=== PATIENT | male | born 1960 | race Hispanic/Latino ===

== ENCOUNTER 2018-03-19 08:52 | Emergency (ER) | payer OTHER ==
[2018-03-19] MEDS ORDERED: MECLIZINE HCL 12.5 MG TAB ONE (09:46)
[2018-03-19 10:17] LABS: Potassium 4.4 mEq/L (3.6-5.0)
[2018-03-19 10:18] LABS: Magnesium 2.1 mg/dL (1.8-2.5)
[2018-03-19 10:25] LABS: Absolute Lymphocytes (CBC) 2.1 K/uL (0.7-4.9); Absolute Monocytes 0.6 K/uL (0.1-1.3); Basophils % 0.8 % (0-1.3); Eosinophils % 4.7 % (0-4.4); Hematocrit 42.5 % (39.6-49.0); Lymphocytes % 35.1 % (15.3-44.8); MCH 35.3 pg (27.0-35.0); MPV 9.3 fL (7.6-11.3); Monocytes % 10.6 % (3.3-12.3); RBC Red Blood Cell Count 4.25 M/uL (4.33-5.43)
[2018-03-19 10:44] LABS: Protime INR 0.89
--- NOTE | 2018-03-19 10:44 | RAD REPORT ---
EXAM DESCRIPTION: CT - Head Brain Wo Cont - 03/19/2018 10:26 am CLINICAL HISTORY: Weakness, dizziness, near syncope, headache COMPARISON: None. TECHNIQUE: Axial 5 mm thick images of the head were obtained without IV contrast. All CT scans are performed using dose optimization technique as appropriate and may include automated exposure control or mA/KV adjustment according to patient size. FINDINGS: No intracranial hemorrhage, mass, edema or shift of mid-line structures. No acute infarcti on changes seen. No abnormal extra-axial fluid collections. Ventricles are normal. Mastoid air cells and visualized portions of the paranasal sinuses are clear. No acute bony findings. IMPRESSION: Negative non-contrast CT head examination.
--- NOTE | 2018-03-19 10:53 | RAD REPORT ---
EXAM DESCRIPTION: RAD - Chest Single View - 03/19/2018 10:21 am CLINICAL HISTORY: Weakness, dizziness, shortness of breath COMPARISON: None. TECHNIQUE: AP portable chest image was obtained 1013 hours . FINDINGS: Lung volumes are relatively low. No peripheral mass, consolidation or failure finding. Tra soniya is midline. Heart and vasculature are normal. No measurable pleural effusion and no pneumothorax . No gross bony abnormality seen. No acute aortic findings suspected. IMPRESSION: No acute cardiopulmonary process.
--- NOTE | 2018-03-19 11:03 | ER ---
Nurse's Notes [facility] Name: Domenic Beltre Sr Age: 58 yrs Sex: Male : 1960 Arrival Date: 03/19/2018 Time: 08:55 Bed 13 Private MD: None, None Diagnosis: Dizziness and giddiness Presentation: 03/19 09:20 Presenting complaint: Patient states: pt woke up this morning at 0630 felling dizzy and iw light headed, has had blood in urine on Thursday but has resolved, has hx of kidney stones. Transition of care: patient was not received from another setting of care. Onset of symptoms was March 19, 2018. Initial Sepsis Screen: Does the patient meet any 2 criteria? No. Patient's initial sepsis screen is negative. Does the patient have a suspected source of infection? No. Patient's initial sepsis screen is negative. Care prior to arrival: None. 09:20 Method Of Arrival: Ambulatory iw 09:20 Acuity: CORNELIUS 3 iw Triage Assessment: 09:28 General: Appears in no apparent distress. uncomfortable, Behavior is calm, cooperative, hj appropriate for age. Pain: Denies pain. Historical: - Allergies: 09:22 Aspirin; iw 09:22 PENICILLINS; iw - Home Meds: 09:22 POTASSIUM CITRATE er 15 meq BID (PT STATES HE ONLY TAKES DAILY) [Active]; iw - PMHx: 09:22 Kidney stones; iw - PSHx: 09:22 Lithotripsy; Appendectomy; iw - Immunization history:: Adult Immunizations unknown. - Social history:: Smoking status: Patient/guardian denies using tobacco, Patient/guardian denies using alcohol. Screenin:28 Abuse screen: Denies threats or abuse. Denies injuries from another. Nutritional hj screening: No deficits noted. Tuberculosis screening: No symptoms or risk factors identified. Fall Risk None identified. Assessment: 09:29 General: Appears in no apparent distress. uncomfortable, Behavior is calm, cooperative, hj appropriate for age. Pain: Denies pain. Neuro: Level of Consciousness is awake, alert, obeys commands, Oriented to person, place, time, situation, Appropriate for age Reports dizziness. Cardiovascular: Heart tones S1 S2 present Capillary refill < 3 seconds Patient's skin is warm and dry. Respiratory: Airway is patent Respiratory effort is even, unlabored, Respiratory pattern is regular, symmetrical. GI: No signs and/or symptoms were reported involving the gastrointestinal system. : No signs and/or symptoms were reported regarding the genitourinary system. EENT: No signs and/or symptoms were reported regarding the EENT system. Derm: No signs and/or symptoms reported regarding the dermatologic system. Musculoskeletal: No signs and/or symptoms reported regarding the musculoskeletal system. 10:00 Reassessment: pt standing at this time, reports really very dizzy, pt swaying back and sg forth, pt reports " it feels like im on a boat at sea." notified. 11:00 Reassessment: a FSBG was done, 228, notified of results, order to hold sg Insulin if pt glucose normally runs in that area, pt reports he is not sure what his normal blood sugar is, no history of diabetes reported per the pt. notified. Vital Signs: 09:22 BP 145 / 88; Pulse 60; Resp 16 S; Temp 98.2; Pulse Ox 97% on R/A; Weight 95.25 kg; iw Height 5 ft. 10 in. (177.80 cm); Pain 0/10; 10:00 BP 136 / 82 LA Supine (auto/lg); Pulse 54; sg 10:00 BP 144 / 82 Sitting; Pulse 53 MON; sg 10:00 BP 143 / 88 Standing; Pulse 60 MON; sg 09:22 Body Mass Index 30.13 (95.25 kg, 177.80 cm) iw ED Course: 08:55 Patient arrived in ED. mr 08:56 None, None is Private Physician. mr 09:16 Chapin Fajardo, SHADI is Primary Nurse. hj 09:22 Mravin Heller MD is Attending Physician. kdr 09:22 Triage completed. iw 09:22 Arm band placed on. iw 09:28 Patient has correct armband on for positive identification. Placed in gown. Bed in low hj position. Call light in reach. Side rails up X 1. Adult w/ patient. 09:31 Initial lab(s) drawn, by me. Inserted saline lock: 22 gauge in right antecubital area, hj using aseptic technique. Blood collected. 10:02 Primary Nurse role handed off by Chapin Fajardo, RN sg 10:02 Huff, Norbert, RN is Primary Nurse. sg 10:15 EKG done, by septic technician. reviewed by Marvin Heller MD. tc 10:20 X-ray completed. Portable x-ray completed in exam room. Patient tolerated procedure mh1 well. 10:21 XRAY Chest (1 view) In Process Unspecified. EDMS 10:26 CT Head Brain wo Cont In Process Unspecified. EDMS Administered Medications: 09:45 Drug: Meclizine 50 mg Route: PO; hj 10:00 Follow up: Response: No adverse reaction hj 12:13 Not Given (Patient Refused): Insulin Regular Human 4 units IVP once iw 12:13 Drug: Valium 5 mg Route: PO; iw Outcome: 11:03 Discharge ordered by . kdr 12:19 Patient left the ED. la1 Signatures: Dispatcher [employer] EDMS Norbert Huff, RN RN Marvin Pillai MD MD kdr Rivera, Maria Garrett Robinha 1 Shamika Harrington, RN RN Sherrie Johnson, lamp inspector EKG Ttc Dillan Garcia RN RN ny1 Chapin Fajardo, SHADI RN
--- NOTE | 2018-03-19 11:03 | EDPHYS ---
Physician Documentation [facility] Name: Domenic Beltre Sr Age: 58 yrs Sex: Male : 1960 Arrival Date: 03/19/2018 Time: 08:55 Bed 13 Private MD: None, None ED Physician Marvin Heller HPI: 03/19 16:23 This 58 yrs old Male presents to ER via Ambulatory with complaints of kdr Dizziness, Urinary Problem. 16:23 The patient presents with dizziness, feeling off balance, vertigo. Onset: The kdr symptoms/episode began/occurred suddenly, this morning, and became persistent today, After he awoke he became dizzy. Context: occurred at home, occurred while the patient was asleep, at rest, just prior to the episode the patient experienced no apparent symptoms. Modifying factors: The symptoms are alleviated by closing eyes, holding head still, the symptoms are aggravated by movement of head, standing up, changing position. Associated signs and symptoms: Pertinent positives: headache, nausea, Pertinent negatives: abdominal pain, agitation, ataxia, blurred vision, chest pain, combativeness, confusion, diaphoresis, focal weakness, head injury, near-syncope, numbness, palpitations, seizure, shortness of breath, syncope, tingling, vomiting. Severity of symptoms: At their worst the symptoms were mild in the emergency department the symptoms have improved mildly. Patient's baseline: Neuro: alert and fully oriented, Motor: no deficits, Ambulation: walks without assistance, Speech: normal. The patient has not experienced similar symptoms in the past. The patient has not recently seen a physician. Historical: - Allergies: 09:22 Aspirin; iw 09:22 PENICILLINS; iw - Home Meds: 09:22 POTASSIUM CITRATE er 15 meq BID (PT STATES HE ONLY TAKES DAILY) [Active]; iw - PMHx: 09:22 Kidney stones; iw - PSHx: 09:22 Lithotripsy; Appendectomy; iw - Immunization history:: Adult Immunizations unknown. - Social history:: Smoking status: Patient/guardian denies using tobacco, Patient/guardian denies using alcohol. ROS: 16:23 Constitutional: Negative for fever, chills, and weight loss, Eyes: Negative for injury, kdr pain, redness, and discharge, ENT: Negative for injury, pain, and discharge, Neck: Negative for injury, pain, and swelling, Cardiovascular: Negative for chest pain, palpitations, and edema, Respiratory: Negative for shortness of breath, cough, wheezing, and pleuritic chest pain, Abdomen/GI: Negative for abdominal pain, nausea, vomiting, diarrhea, and constipation, Back: Negative for injury and pain, : Negative for injury, bleeding, discharge, and swelling, MS/Extremity: Negative for injury and deformity, Skin: Negative for injury, rash, and discoloration, Psych: Negative for depression, anxiety, suicide ideation, homicidal ideation, and hallucinations, Allergy/Immunology: Negative for hives, rash, and allergies, Endocrine: Negative for neck swelling, polydipsia, polyuria, polyphagia, and marked weight changes, Hematologic/Lymphatic: Negative for swollen nodes, abnormal bleeding, and unusual bruising. 16:23 Neuro: Positive for dizziness, headache, Negative for altered mental status, gait disturbance, hearing loss, loss of consciousness, numbness, seizure activity, speech changes, syncope, near syncope, tingling, tinnitus, tremor, visual changes, weakness. Exam: 16:23 Constitutional: This is a well developed, well nourished patient who is awake, alert, kdr and in no acute distress. Head/Face: Normocephalic, atraumatic. Eyes: Pupils equal round and reactive to light, extra-ocular motions intact. Lids and lashes normal. Conjunctiva and sclera are non-icteric and not injected. Cornea within normal limits. Periorbital areas with no swelling, redness, or edema. Neck: Trachea midline, no thyromegaly or masses palpated, and no cervical lymphadenopathy. Supple, full range of motion without nuchal rigidity, or vertebral point tenderness. No Meningismus. Chest/axilla: Normal chest wall appearance and motion. Nontender with no deformity. No lesions are appreciated. Cardiovascular: Regular rate and rhythm with a normal S1 and S2. No gallops, murmurs, or rubs. Normal PMI, no JVD. No pulse deficits. Respiratory: Lungs have equal breath sounds bilaterally, clear to auscultation and percussion. No rales, rhonchi or wheezes noted. No increased work of breathing, no retractions or nasal flaring. Abdomen/GI: Soft, non-tender, with normal bowel sounds. No distension or tympany. No guarding or rebound. No evidence of tenderness throughout. Back: No spinal tenderness. No costovertebral tenderness. Full range of motion. Skin: Warm, dry with normal turgor. Normal color with no rashes, no lesions, and no evidence of cellulitis. MS/ Extremity: Pulses equal, no cyanosis. Neurovascular intact. Full, normal range of motion. Psych: Awake, alert, with orientation to person, place and time. Behavior, mood, and affect are within normal limits. 16:23 Neuro: Orientation: is normal, Mentation: is normal, Memory: is normal, Cranial nerves: no acute changes, Cerebellar function: no acute changes, Motor: is normal, Sensation: is normal, Gait: Slightly off balance when standing but able to ambulate. Dizziness resolves when he holds still with his eyes close. Vital Signs: 09:22 BP 145 / 88; Pulse 60; Resp 16 S; Temp 98.2; Pulse Ox 97% on R/A; Weight 95.25 kg; iw Height 5 ft. 10 in. (177.80 cm); Pain 0/10; 10:00 BP 136 / 82 LA Supine (auto/lg); Pulse 54; sg 10:00 BP 144 / 82 Sitting; Pulse 53 MON; sg 10:00 BP 143 / 88 Standing; Pulse 60 MON; sg 09:22 Body Mass Index 30.13 (95.25 kg, 177.80 cm) iw MDM: 11:03 Patient medically screened[address] [facility] 16:23 Data reviewed: vital signs, nurses notes, lab test result(s), radiologic studies. kdr Counseling: I had a detailed discussion with the patient and/or guardian regarding: the historical points, exam findings, and any diagnostic results supporting the discharge/admit diagnosis, lab results, radiology results, the need for outpatient follow up. ED course: The patient had resolution of his s/s with immobility and eye closure. He was able to lift his head off the bed and look up/down/side-side without significant worsening of his s/s. 03/19 09:44 Order name: Basic Metabolic Panel; Complete Time: 10:56 kdr 03/19 09:44 Order name: BNP; Complete Time: 10:56 kdr 03/19 09:44 Order name: CBC with Diff; Complete Time: 10:56 kdr 03/19 09:44 Order name: Magnesium; Complete Time: 10:56 kdr 03/19 09:44 Order name: PT-INR; Complete Time: 10:[address] [facility] 03/19 09:44 Order name: Ptt, Activated; Complete Time: 10:[address] [facility] 03/19 09:44 Order name: CT Head Brain wo Cont; Complete Time: 10:[address] [facility] 03/19 09:44 Order name: Orthostatic Blood Pressure; Complete Time: 10:[address] [facility] 03/19 09:44 Order name: XRAY Chest (1 view); Complete Time: 10:[address] [facility] 03/19 09:44 Order name: EKG; Complete Time: 09:[address] [facility] 03/19 09:44 Order name: Cardiac monitoring; Complete Time: 09:[address] [facility] 03/19 09:44 Order name: IV Saline Lock; Complete Time: :[address] [facility] 03/19 09:44 Order name: Labs collected and sent; Complete Time: :[address] [facility] 03/19 09:44 Order name: O2 Per Protocol; Complete Time: :[address] [facility] 03/19 09:44 Order name: O2 Sat Monitoring; Complete Time: :[address] [facility] Administered Medications: 09:45 Drug: Meclizine 50 mg Route: PO; hj 10:00 Follow up: Response: No adverse reaction hj 12:13 Not Given (Patient Refused): Insulin Regular Human 4 units IVP once iw 12:13 Drug: Valium 5 mg Route: PO; iw Disposition: 03/19/18 11:03 Discharged to Home. Impression: Dizziness and giddiness. - Condition is Stable. - Discharge Instructions: Vertigo, [id number], Dizziness, [id number]. - Prescriptions for Meclizine 25 mg Oral Tablet - take 1 tablet by ORAL route every 8 hours As needed One or two tabs three to four times per day; 30 tablet. Valium 2 mg Oral Tablet - take 1 tablet by ORAL route every 8 hours As needed; 20 tablet. - Medication Reconciliation Form, Thank You Letter, Antibiotic Education, Prescription Opioid Use form. - Follow up: Private Physician; When: 2 - 3 days; Reason: If symptoms return, Further diagnostic work-up, Recheck today's complaints, Continuance of care, Re-evaluation by your physician. - Problem is new. - Symptoms are resolved. Signatures: Dispatcher [employer] EDMarvin Moe MD MD Shamika Eckert, RN RN Dillan Sheth, RN RN la1 Chapin Fajardo, RN RN hj
[2018-03-19] MEDS ORDERED: DIAZEPAM 5 MG TABLET ONE (12:13)
--- NOTE | 2018-03-19 16:26 | EKG ---
Test Date: 2018-03-19 Test Time: 10:05:00 [employer]: RORY MEASUREMENT RESULTS: Intervals: Rate: 52 DE: 166 QRSD: 110 QT: 428 QTc: 398 [place]: P: 45 DE: 166 QRS: -21 T: 29 INTERPRETIVE STATEMENTS: Sinus bradycardia Otherwise normal ECG No previous ECG available for comparison Electronically Signed On 03-19-18 16:23:38 CDT by Sky Church
== END 2018-03-19 12:19 | disposition home or self-care (01) ==
LOC: ER 08:52
DX: R42 Dizziness and giddiness (principal); R51 Headache; Z88.0 Allergy status to penicillin; Z88.6 Allergy status to analgesic agent
CPT/HCPCS: 36415; 70450; 71045; 80048; 82962; 83735; 83880; 85025; 85610; 85730; 93005; 99284

== ENCOUNTER 2018-04-23 07:41 | Day surgery (SDC) | payer OTHER ==
[2018-04-23] MEDS ORDERED: NA CHLORIDE 0.9% 1,000 ML ONE (08:18)
[2018-04-23] MEDS ORDERED: PROPOFOL 200 MG/20 ML VIAL IV ONE ×2 (10:50)
--- NOTE | 2018-04-23 11:25 | ENDO RPT ---
[address], [address] COLONOSCOPY PROCEDURE REPORT EXAM DATE: 04/23/2018 PATIENT NAME: Domenic Beltre MR #: [id number] BIRTHDATE: 1960 ATTENDING: Sagar Tejada DR STATUS: outpatient COSMETIC CHEMIST: Shiloh Liang RN and Reymundo Olivares INDICATIONS: The patient is a 58 yr old Male here for a colonoscopy due to colon cancer screening PROCEDURE PERFORMED: Colonoscopy with biopsy - cold polypectomy MEDICATIONS: Per Anesthesia. ESTIMATED BLOOD LOSS: None CONSENT: The patient understands the risks and benefits of the procedure and understands that these risks include, but are not limited to: sedation, allergic reaction, infection, perforation and/or bleeding. Alternative means of evaluation and treatment include, among others: physical exam, x-rays, and/or surgical intervention. The patient elects to proceed with this endoscopic procedure. DESCRIPTION OF PROCEDURE: During intra-op preparation period all mechanical medical equipment was checked for proper function. Hand hygiene and appropriate measures for infection prevention was taken. Procedure, possible complications, alternatives including, but not limited to possibility of bleeding, perforation, tear, infection, sepsis, need for surgery, need for blood transfusion, were explained to the patient. After the risks, benefits and alternatives of the procedure were thoroughly explained, Informed consent was verified, confirmed and timeout was successfully executed by the treatment team. The patient was placed in the left lateral position. A digital rectal exam was performed and revealed internal hemorrhoids. After appropriate level of anesthesia, the scope was passed. The EC-[id number] ([id number]) endoscope was introduced through the anus and advanced to the cecum, which was identified by both the appendix and ileocecal valve. The quality of the prep was fair. The instrument was then slowly withdrawn as the colon was fully examined. Scope withdrawal time was 10 minutes. COLON FINDINGS: Small internal hemorrhoids were found. A small smooth semi-pedunculated polyp with a friable surface was found in the rectosigmoid colon. A biopsy was performed using cold forceps. Sample was obtained and sent to histology. Retroflexed views revealed no abnormalities. The scope was then completely withdrawn from the patient and the procedure terminated. ADVERSE EVENTS: There were no complications. IMPRESSIONS: 1. Small internal hemorrhoids 2. Small semi-pedunculated polyp was found in the rectosigmoid colon; biopsy was performed using cold forceps RECOMMENDATIONS: 1. await biopsy results 2. avoid NSAIDS for 2 weeks 3. fiber rich diet 4. follow-up: office 2 week(s) 5. hemorrhoidal hygiene RECALL: for Colonoscopy, pending biopsy results. Sagar Tejada DR eSigned: Sagar Tejada DR 04/23/2018 11:24 AM cc: CPT CODES: ICD9 CODES: PATIENT NAME: Domenic Beltre MR#: [id number]
== END 2018-04-23 12:02 | disposition home or self-care (01) ==
LOC: OR 07:41
PROVIDERS: ATTEND Surgery
PROC: 0DBN8ZX Excision of Sigmoid Colon, Via Natural or Artificial Opening Endoscopic, Diagnostic (ICD-10-PCS; principal; 2018-04-23 11:15)
DX: Z12.11 Encounter for screening for malignant neoplasm of colon (principal); K63.5 Polyp of colon; K64.8 Other hemorrhoids; E11.9 Type 2 diabetes mellitus without complications; I10 Essential (primary) hypertension; Z88.0 Allergy status to penicillin; Z88.6 Allergy status to analgesic agent; Z87.891 Personal history of nicotine dependence; Z80.3 Family history of malignant neoplasm of breast
CPT/HCPCS: 82962; 88305; J7030

== ENCOUNTER 2018-05-25 08:52 | Day surgery (SDC) | payer OTHER ==
[2018-05-25 08:48] LABS: Absolute Lymphocytes (CBC) 2.3 K/uL (0.7-4.9); Absolute Monocytes 0.8 K/uL (0.1-1.3); Absolute Neutrophil 4.7 K/uL (1.8-8.0); Basophils % 0.8 % (0-1.3); Eosinophils % 4.2 % (0-4.4); Lymphocytes % 28.3 % (15.3-44.8); MCH 34.4 pg (27.0-35.0); MCV 101.5 fL (80-100); MPV 9.4 fL (7.6-11.3); Monocytes % 9.4 % (3.3-12.3); RBC Red Blood Cell Count 4.33 M/uL (4.33-5.43)
[2018-05-25 08:50] LABS: Urine Appearance CLEAR; Urine Bilirubin NEGATIVE (NEG); Urine Blood NEGATIVE (NEG); Urine Color YELLOW; Urine Glucose 3+ (NEG); Urine Protein NEGATIVE (NEG); Urine Specific Gravity >=1.030 (1.005-1.030); Urine Urobilinogen 0.2 mg/dL (0.2-1.0); Urine pH 5.5 (5.0-7.0)
[2018-05-25 08:51] LABS: Urine Microscopic Reflex ORDER UMIC
[2018-05-25 08:52] LABS: Protime INR 0.87
[2018-05-25 08:53] LABS: Urine Bacteria <20 /HPF (NONE SEEN); Urine Culture Reflex Order NOT NEEDED; Urine RBC <5 /HPF (NONE SEEN)
--- OUTSIDE RECORDS SUMMARY | 2018-05-25 08:55 | XMS REPORT ---
:1960 Author Organization [employer] Care Team Providers Name Role Phone GonzalezSarahh Provider Role Unavailable Allergies, Adverse Reactions, Alerts Substance Reaction Event Type penicillin pass out Drug Allergy aspirin upset stomach Drug Allergy Problems Problem Type Condition Code Onset Dates Condition Status Assessment Need for Tdap vaccination Z23 Active Assessment Screening for colon cancer Z12.11 Active Assessment Encounter for screening for other Z11.59 Active viral diseases Problem History of kidney stones Z87.442 Active Problem Type 2 diabetes mellitus without E11.9 Active complication, unspecified whether director of solutions architecture insulin use Problem HTN (hypertension), benign I10 Active Assessment Type 2 diabetes mellitus without E11.9 Active complication, unspecified whether director of solutions architecture insulin use Assessment History of kidney stones Z87.442 Active Assessment Encounter for preventative adult Z00.01 Active health care exam with abnormal findings Assessment HTN (hypertension), benign I10 Active Medications Medication Code Code Instructions Start End Status Dosage System Date Date Potassium [facility] 33295272783 15 MEQ (1620 MG) Active 1 tablet Citrate ER Orally Twice a with meals day Janumet XR [facility] 70090883817 50-1000 MG Active 2 tablets Orally Once a with day evening meal Losartan ND 19858129196 100 MG Orally Active 1 tablet Potassium Once a day Results No Known Results Immunizations Vaccine Administration Date TDAP > 7 Years-Adacel April 07, 2018 Summary Purpose [employer] Submission
--- OUTSIDE RECORDS SUMMARY | 2018-05-25 08:55 | XMS REPORT ---
:1960 Author Organization [employer] Care Team Providers Name Role Phone Sagar Tejada Provider Role Unavailable Allergies, Adverse Reactions, Alerts Substance Reaction Event Type penicillin pass out Drug Allergy aspirin upset stomach Drug Allergy Problems Problem Type Condition Code Onset Dates Condition Status Problem History of kidney stones Z87.442 Active Problem Type 2 diabetes mellitus without E11.9 Active complication, unspecified whether longterm insulin use Problem Mixed hyperlipidemia E78.2 Active Assessment Follow-up exam V67.9 Active Problem HTN (hypertension), benign I10 Active Medications Medication Code Code Instructions Start End Status Dosage System Date Date Potassium [facility] 47592143829 15 MEQ (1620 MG) Active 1 tablet Citrate ER Orally Twice a with meals day Metformin HCl [facility] 75246543496 1000 MG Orally April 26, Active 1 tablet twice a day 2017 with a meal Tradjenta [facility] 45254843047 5 MG Orally Once April 26, Active 1 tablet a day 2017 Jardiance [facility] 06739153247 10 MG Orally April 26, Active 1 tablet Once a day 2017 Simvastatin ND 80899698697 20 MG Orally April 22, Active 1 tablet Once a day 2018 in the evening Losartan [facility] 65354671107 100 MG Orally Active 1 tablet Potassium Once a day Results No Known Results Summary Purpose [employer] Submission
--- OUTSIDE RECORDS SUMMARY | 2018-05-25 08:55 | XMS REPORT | Clinical Summary ---
:1960 Author Organization [facility] Address [address] [place] [address] Care Team Providers Name Role Phone Asked, No Pcp Primary Care Provider Unavailable Allergies Active Allergy Reactions Severity Noted Date Comments Aspirin 05/22/2018 Penicillins 05/22/2018 Current Medications Prescription Sig. Disp. Refills Start Date End Date Status potassium citrate Take 15 mEq by Active (UROCIT-K) 15 mEq tablet mouth 2 (two) extended release times a day. simvastatin (ZOCOR) 20 MG Take 20 mg by Active tablet mouth nightly. linagliptin (TRADJENTA) 5 Take 5 mg by mouth Active mg tablet daily. empagliflozin (JARDIANCE) Take 10 mg by Active 10 mg tablet tablet mouth daily. metFORMIN (GLUCOPHAGE) Take 1,000 mg by Active 1,000 mg tablet mouth 2 (two) times a day with meals. losartan (COZAAR) 100 MG Take 100 mg by Active tablet mouth daily. Active Problems Not on file Encounters Date Type Specialty Care Team Description 05/22/2018 Emergency Emergency Medicine Sammy Mayorga Hematuria, gross (Primary Dx); DO Filiberto Kidney stone on left side 05/22/2018 Emergency Emergency Medicine after 05/24/2017 Social History Tobacco Use Types Packs/Day Years Used Date Never Smoker Smokeless Tobacco: Never Used Alcohol Use Drinks/Week oz/Week Comments No Sex Assigned at Date Recorded Not on file Last Filed Vital Signs Vital Sign Reading Time Taken Blood Pressure 113/67 05/22/2018 6:32 PM CDT Pulse 66 05/22/2018 6:32 PM CDT Temperature 35.7 C (96.3 F) 05/22/2018 6:32 PM CDT Respiratory Rate 16 05/22/2018 6:32 PM CDT Oxygen Saturation 98% 05/22/2018 6:38 PM CDT Inhaled Oxygen Concentration - - Weight 89.4 kg (197 lb) 05/22/2018 6:25 PM CDT Height 177.8 cm (5' 10") 05/22/2018 6:25 PM CDT Body Mass Index 28.27 05/22/2018 6:25 PM CDT Plan of Treatment Health Maintenance Due Date Last Done Comments COLON CANCER SCREENING 2011 SHINGRIX VACCINE (#1) 2011 INFLUENZA VACCINE 06/23/2018 Procedures Procedure Name Priority Date/Time Associated Comments Diagnosis CT RENAL STONE STAT 05/22/2018 7:13 PM Results for this PROTOCOL CDT procedure are in the results section. URINALYSIS STAT 05/22/2018 6:42 PM Results for this CDT procedure are in the results section. after 05/24/[address] Renal Stone Protocol (05/22/2018 7:13 PM) Narrative Performed At [facility] INDICATION:grosspainless hematuria TECHNIQUE: Multidetector CT of the abdomen and pelvis was performed without intravenous administration of iodinated contrast with multiplanar reformats. CT scans are performed using radiation dose reduction techniques (iterative reconstruction and/or automated exposure control). Technical factors are evaluated and adjusted to ensure appropriate moderation of exposure. Automated dose management technology is applied to adjust radiation exposure while achieving a diagnostic quality image. COMPARISON:None. FINDINGS: Lung bases:Dependent atelectasis. Liver:Normal. Gallbladder and biliary:Normal. Pancreas:Normal. Spleen:Normal. Gastrointestinal:Large and small bowel are normal in caliber. Few scattered colonic diverticula without acute inflammatory change. Appendix is not visualized. No focal inflammatory changes within the right lower quadrant of the abdomen. Adrenals:Normal. Kidneys and ureters:Small nonobstructing calculi in the left renal pelvis measuring up to approximately 0.6 cm. A punctate calculus is also identified in the right renal pelvis. There is no ureterolithiasis. No hydronephrosis. Urinary bladder:Normal. Lymph nodes:No enlarged lymph nodes in the abdomen or pelvis. Peritoneum:No ascites or free air. Vascular:Unremarkable. Reproductive organs:The prostate is enlarged. Abdominal wall:Unremarkable. Bones:No acute osseous abnormalities. IMPRESSION: Nephrolithiasis involving the left greater than right kidney. No ureterolithiasis or hydronephrosis. [facility]-[id number] Procedure Note Interface, Radiology Results Incoming - 05/22/2018 7:[address] RENAL STONE PROTOCOL CLINICAL INDICATION: gross painless hematuria TECHNIQUE: Multidetector CT of the abdomen and pelvis was performed without intravenous administration of iodinated contrast with multiplanar reformats. CT scans are performed using radiation dose reduction techniques (iterative reconstruction and/or automated exposure control). Technical factors are evaluated and adjusted to ensure appropriate moderation of exposure. Automated dose management technology is applied to adjust radiation exposure while achieving a diagnostic quality image. COMPARISON: None. FINDINGS: Lung bases: Dependent atelectasis. Liver: Normal. Gallbladder and biliary: Normal. Pancreas: Normal. Spleen: Normal. Gastrointestinal: Large and small bowel are normal in caliber. Few scattered colonic diverticula without acute inflammatory change. Appendix is not visualized. No focal inflammatory changes within the right lower quadrant of the abdomen. Adrenals: Normal. Kidneys and ureters: Small nonobstructing calculi in the left renal pelvis measuring up to approximately 0.6 cm. A punctate calculus is also identified in the right renal pelvis. There is no ureterolithiasis. No hydronephrosis. Urinary bladder: Normal. Lymph nodes: No enlarged lymph nodes in the abdomen or pelvis. Peritoneum: No ascites or free air. Vascular: Unremarkable. Reproductive organs: The prostate is enlarged. Abdominal wall: Unremarkable. Bones: No acute osseous abnormalities. IMPRESSION: Nephrolithiasis involving the left greater than right kidney. No ureterolithiasis or hydronephrosis. [facility]-[id number] Performing Organization Address City/State/Zipcode Phone Number RICHARD [address] [place] [address] Urinalysis (05/22/2018 6:42 PM) Glucose, UA 2+ (A) Negative DEPARTMENT OF PATHOLOGY AND GENOMIC MEDICINE, [facility] Bilirubin, UA Negative Negative [facility] Ketones, UA Negative Negative DEPARTMENT OF PATHOLOGY AND GENOMIC MEDICINE, [facility] Specific gravity, UA 1.015 1.001 - 1.035 [facility] Blood, UA Large (A) Negative [facility] pH, UA 5.5 5.0 - 8.5 [facility] Protein, UA Negative Negative DEPARTMENT OF PATHOLOGY AND GENOMIC MEDICINE, [facility] Urobilinogen, UA <2.0 <2.0 DEPARTMENT OF PATHOLOGY AND GENOMIC MEDICINE, [facility] Nitrite, UA Negative Negative DEPARTMENT OF PATHOLOGY AND GENOMIC MEDICINE, [facility] Leukocyte esterase, UA Negative Negative DEPARTMENT OF PATHOLOGY AND GENOMIC MEDICINE, [facility] Color, UA Yellow DEPARTMENT OF PATHOLOGY AND GENOMIC MEDICINE, [facility] Appearance, UA Cloudy DEPARTMENT OF PATHOLOGY AND GENOMIC MEDICINE, [facility] Specimen Urine Performing Organization Address City/State/[facility] [place] Phone Number DEPARTMENT OF PATHOLOGY AND [address] [place] [phone] [facility] after 05/24/2017 Insurance Payer Benefit Plan / Group Subscriber ID Type Phone Address AETNA AETNA HMO,POS,EPO, MC/EC xxxxxxxxxx HMO Home: [facility] [phone] [place], [place] [address]
--- OUTSIDE RECORDS SUMMARY | 2018-05-25 08:55 | XMS REPORT ---
:1960 Author Organization [employer] Care Team Providers Name Role Phone Mitch Gonzalez Provider Role Unavailable Allergies No Known Allergies Problems Problem Type Condition Code Onset Dates Condition Status Assessment Impacted cerumen, right ear H61.21 Active Assessment History of kidney stones Z87.442 Active Problem History of kidney stones Z87.442 Active Problem Type 2 diabetes mellitus without E11.9 Active complication, unspecified whether shelter insulin use Problem Mixed hyperlipidemia E78.2 Active Assessment HTN (hypertension), benign I10 Active Assessment Mixed hyperlipidemia E78.2 Active Problem HTN (hypertension), benign I10 Active Assessment Type 2 diabetes mellitus without E11.9 Active complication, unspecified whether shelter insulin use Medications Medication Code Code Instructions Start End Status Dosage System Date Date Losartan ND 74634297865 100 MG Orally Active 1 tablet Potassium Once a day Potassium [facility] 71417073485 15 MEQ (1620 MG) Active 1 tablet Citrate ER Orally Twice a with meals day Janumet XR ND 86692013303 50-1000 MG Active 2 tablets Orally Once a with day evening meal Simvastatin ND 50418079854 20 MG Orally April 22, Active 1 tablet Once a day 2018 in the evening Results No Known Results Summary Purpose eClinicalWorks Submission
--- OUTSIDE RECORDS SUMMARY | 2018-05-25 08:55 | XMS REPORT ---
:1960 Author Organization [employer] Care Team Providers Name Role Phone Carlos Mitch Provider Role Unavailable Allergies No Known Allergies Problems Problem Type Condition Code Onset Dates Condition Status Problem History of kidney stones Z87.442 Active Problem Type 2 diabetes mellitus without E11.9 Active complication, unspecified whether reservationist insulin use Problem Mixed hyperlipidemia E78.2 Active Problem HTN (hypertension), benign I10 Active Assessment Type 2 diabetes mellitus without E11.9 Active complication, unspecified whether detention insulin use Medications Medication Code Code Instructions Start End Status Dosage System Date Date Tradjenta [facility] 78014704777 5 MG Orally April 26, Active 1 tablet Once a day 2017 Jardiance [facility] 88538144937 10 MG Orally April 26, Active 1 tablet Once a day 2017 Metformin HCl ND 35119550892 1000 MG Orally April 26, Active 1 tablet twice a day 2017 with a meal Janumet XR [facility] 53948298002 50-1000 MG Inactive 2 tablets Orally Once a with day evening meal Results No Known Results Summary Purpose eClinicalWorks Submission
--- OUTSIDE RECORDS SUMMARY | 2018-05-25 08:55 | XMS REPORT ---
[...] mellitus without E11.9 Active complication, unspecified whether prison insulin use Problem Mixed hyperlipidemia E78.2 Active Problem HTN (hypertension), benign I10 Active Assessment Encounter for screening colonoscopy Z12.11 Active Medications Medication Code Code Instructions Start End Status Dosage System Date Date Potassium [facility] 22008156467 15 MEQ (1620 MG) Active 1 tablet Citrate ER Orally Twice a with meals day Janumet XR [facility] 50656504321 50-1000 MG Active 2 tablets Orally Once a with day evening meal Losartan ND 59173732396 100 MG Orally Active 1 tablet Potassium Once a day Results No Known Results Summary Purpose eClinicalWorks Submission
[2018-05-25 09:15] LABS: Phosphorus 3.4 mg/dL (2.5-4.9); Potassium 4.6 mmol/L (3.5-5.1); Uric Acid 4.3 mg/dL (3.5-7.2)
[2018-05-25] MEDS ORDERED: GENTAMICIN 100 MG/100 ML BAG 100 MG/100 ML BAG IV ONE (09:31)
[2018-05-25] MEDS ORDERED: NA CHLORIDE 0.9% 1,000 ML ONE (09:31)
--- NOTE | 2018-05-25 09:44 | RAD REPORT ---
EXAM DESCRIPTION: RAD - Abdomen 1 View (KUB) - 05/25/2018 8:48 am CLINICAL HISTORY: ICD N 20.0 FINDINGS: The bowel gas pattern is unremarkable. The 9 millimeter calculus seen within the midpole of the left kidney on the yesterday's examination i s not clearly seen on today's x-ray. It likely is obscured by overlying air and stool within bowel
[2018-05-25] MEDS ORDERED: FENTANYL CITR 100 MCG/2 ML ONE (11:48)
[2018-05-25] MEDS ORDERED: MIDAZOLAM HCL 2 MG/2 ML INJ ONE (11:48)
[2018-05-25] MEDS ORDERED: PROPOFOL 200 MG/20 ML VIAL IV ONE (11:48)
[2018-05-25] MEDS ORDERED: KETOROLAC 30 MG/ML INJ ONE (12:45)
[2018-05-25] MEDS ORDERED: D50W 25 GM/50 ML SYRINGE IV ONE (13:03)
--- NOTE | 2018-05-25 15:35 | EKG ---
Test Date: 2018-05-25 Test Time: 08:31:12 Bellows Assembler: DOM MEASUREMENT RESULTS: Intervals: Rate: 58 WY: 170 QRSD: 102 QT: 410 QTc: 402 [place]: P: 45 WY: 170 QRS: -29 T: 36 INTERPRETIVE STATEMENTS: Sinus bradycardia Otherwise normal ECG Compared to ECG 03/19/2018 10:05:00 No significant changes Electronically Signed On 05-25-18 15:33:51 CDT by Sky Church
== END 2018-05-25 15:50 | disposition home or self-care (01) ==
LOC: OR 08:52
PROVIDERS: ATTEND Urology
PROC: 0TF4XZZ Fragmentation in Left Kidney Pelvis, External Approach (ICD-10-PCS; principal; 2018-05-25 13:30)
DX: N20.0 Calculus of kidney (principal); N42.9 Disorder of prostate, unspecified; I10 Essential (primary) hypertension; E11.9 Type 2 diabetes mellitus without complications; E78.00 Pure hypercholesterolemia, unspecified; Z88.0 Allergy status to penicillin; Z88.6 Allergy status to analgesic agent; Z82.49 Family history of ischemic heart disease and other diseases of the circulatory system; Z80.41 Family history of malignant neoplasm of ovary
CPT/HCPCS: 36415; 50590; 74018; 80048; 81003; 81015; 82962; 84100; 84550; 85025; 85610; 85730; 87086; 87088; 93005; J1580; J2250; J3010; J7030

== ENCOUNTER 2018-05-27 11:18 | Emergency (ER) | payer OTHER ==
--- OUTSIDE RECORDS SUMMARY | 2018-05-27 11:20 | XMS REPORT ---
[...] mellitus without E11.9 Active complication, unspecified whether skilled nursing insulin use Problem Mixed hyperlipidemia E78.2 Active Assessment HTN (hypertension), benign I10 Active Assessment Mixed hyperlipidemia E78.2 Active Problem HTN (hypertension), benign I10 Active Assessment Type 2 diabetes mellitus without E11.9 Active complication, unspecified whether skilled nursing insulin use Medications Medication Code Code Instructions Start End Status Dosage System Date Date Losartan ND 22075336000 100 MG Orally Active 1 tablet Potassium Once a day Potassium [facility] 26719781278 15 MEQ (1620 MG) Active 1 tablet Citrate ER Orally Twice a with meals day Janumet XR ND 69360895326 50-1000 MG Active 2 tablets Orally Once a with day evening meal Simvastatin ND 34372874123 20 MG Orally April 22, Active 1 tablet Once a day 2018 in the evening Results No Known Results Summary Purpose eClinicalWorks Submission
--- OUTSIDE RECORDS SUMMARY | 2018-05-27 11:20 | XMS REPORT ---
[...] End Status Dosage System Date Date Potassium [facility] 32947305222 15 MEQ (1620 MG) Active 1 tablet Citrate ER Orally Twice a with meals day Janumet XR [facility] 36593445048 50-1000 MG Active 2 tablets Orally Once a with day evening meal Losartan ND 45979032628 100 MG Orally Active 1 tablet Potassium Once a day Results No Known Results Summary Purpose eClinicalWorks Submission
--- OUTSIDE RECORDS SUMMARY | 2018-05-27 11:20 | XMS REPORT ---
[...] mellitus without E11.9 Active complication, unspecified whether [facility] insulin use Problem Mixed hyperlipidemia E78.2 Active Assessment Follow-up exam V67.9 Active Problem HTN (hypertension), benign I10 Active Medications Medication Code Code Instructions Start End Status Dosage System Date Date Potassium [facility] 29402672737 15 MEQ (1620 MG) Active 1 tablet Citrate ER Orally Twice a with meals day Metformin HCl [facility] 05062317314 1000 MG Orally April 26, Active 1 tablet twice a day 2017 with a meal Tradjenta [facility] 84817996923 5 MG Orally Once April 26, Active 1 tablet a day 2017 Jardiance [facility] 09173122991 10 MG Orally April 26, Active 1 tablet Once a day 2017 Simvastatin ND 63634019241 20 MG Orally April 22, Active 1 tablet Once a day 2018 in the evening Losartan [facility] 36861932606 100 MG Orally Active 1 tablet Potassium Once a day Results No Known Results Summary Purpose eClinicalWorks Submission
--- OUTSIDE RECORDS SUMMARY | 2018-05-27 11:20 | XMS REPORT | Clinical Summary ---
:1960 Author Organization [facility] Address [address] [place] [address] Care Team Providers Name Role Phone Asked, [...] left side 05/22/2018 Emergency Emergency Medicine after 05/26/2017 Social History Tobacco Use Types Packs/Day Years [...] procedure are in the results section. after 05/26/[address] Renal Stone Protocol (05/22/2018 7:13 PM) Narrative Performed At [facility] CLINICAL INDICATION:grosspainless hematuria TECHNIQUE: Multidetector CT of [...] than right kidney. No ureterolithiasis or hydronephrosis. [facility]-[id number] Procedure Note Interface, Radiology Results Incoming - [...] than right kidney. No ureterolithiasis or hydronephrosis. [facility]-[id number] Performing Organization Address City/State/Zipcode Phone Number RICHARD [address] [place] [address] Urinalysis (05/22/2018 6:42 PM) Glucose, UA 2+ (A) Negative DEPARTMENT OF PATHOLOGY AND GENOMIC MEDICINE, [facility] Bilirubin, UA Negative Negative [facility] Ketones, UA Negative Negative DEPARTMENT OF PATHOLOGY AND GENOMIC MEDICINE, [facility] Specific gravity, UA 1.015 1.001 - 1.035 [facility] Blood, UA Large (A) Negative [facility] pH, UA 5.5 5.0 - 8.5 [facility] Protein, UA Negative Negative DEPARTMENT OF PATHOLOGY AND GENOMIC MEDICINE, [facility] Urobilinogen, UA <2.0 <2.0 DEPARTMENT OF PATHOLOGY AND GENOMIC MEDICINE, [facility] Nitrite, UA Negative Negative DEPARTMENT OF PATHOLOGY AND GENOMIC MEDICINE, [facility] Leukocyte esterase, UA Negative Negative DEPARTMENT OF PATHOLOGY AND GENOMIC MEDICINE, [facility] Color, UA Yellow DEPARTMENT OF PATHOLOGY AND GENOMIC MEDICINE, [facility] Appearance, UA Cloudy DEPARTMENT OF PATHOLOGY AND GENOMIC MEDICINE, [facility] Specimen Urine Performing Organization Address City/State/[facility] [place] Phone [place] DEPARTMENT OF PATHOLOGY AND [address] [place] [address] [facility] after 05/26/2017 Insurance Payer Benefit Plan / Group Subscriber ID Type Phone Address AETNA AETNA HMO,POS,EPO, MC/EC xxxxxxxxxx HMO Home: [facility] [phone] [place], [place] [address]
--- OUTSIDE RECORDS SUMMARY | 2018-05-27 11:20 | XMS REPORT ---
:1960 Author Organization [employer]ClinicalWorks Care Team Providers Name Role Phone Cralos Mitch Provider Role Unavailable Allergies No Known Allergies Problems Problem Type Condition Code Onset Dates Condition Status Problem History of kidney stones Z87.442 Active Problem Type 2 diabetes mellitus without E11.9 Active complication, unspecified whether intermediate frame tender insulin use Problem Mixed hyperlipidemia E78.2 Active Problem HTN (hypertension), benign I10 Active Assessment Type 2 diabetes mellitus without E11.9 Active complication, unspecified whether [facility] insulin use Medications Medication Code Code Instructions Start End Status Dosage System Date Date Tradjenta [facility] 54466316786 5 MG Orally April 26, Active 1 tablet Once a day 2017 Jardiance [facility] 30287346414 10 MG Orally April 26, Active 1 tablet Once a day 2017 Metformin HCl ND 46846613890 1000 MG Orally April 26, Active 1 tablet twice a day 2017 with a meal Janumet XR [facility] 13486018191 50-1000 MG Inactive 2 tablets Orally Once a with day evening meal Results No Known Results Summary Purpose eClinicalWorks Submission
--- OUTSIDE RECORDS SUMMARY | 2018-05-27 11:20 | XMS REPORT ---
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 Assessment History of kidney stones Z87.442 Active Assessment Encounter for preventative adult Z00.01 Active health care exam with abnormal findings Assessment HTN (hypertension), benign I10 Active Medications Medication Code Code Instructions Start End Status Dosage System Date Date Potassium [facility] [place] 16155278844 15 MEQ (1620 MG) Active 1 tablet Citrate ER Orally Twice a with meals day Janumet XR [facility] [place] 92669718719 50-1000 MG Active 2 tablets Orally Once a with day evening meal Losartan ND 11043881539 100 MG Orally Active 1 tablet Potassium Once a day Results No Known Results Immunizations Vaccine Administration Date TDAP > 7 Years-Adacel April 07, 2018 Summary Purpose eClinicalWorks Submission
--- NOTE | 2018-05-27 13:02 | RAD REPORT ---
EXAM DESCRIPTION: [place] Single View05/27/2018 12:41 pm CLINICAL HISTORY: Abdominal pain/hematuria. COMPARISON: May 24, 2018 FINDINGS: The lungs appear clear of acute infiltrate. The heart is normal size IMPRESSION: No acute abnormalities displayed
--- NOTE | 2018-05-27 13:18 | RAD REPORT ---
EXAM DESCRIPTION: US - Renal Ultrasound-Complete - 05/27/2018 1:05 pm CLINICAL HISTORY: Abdominal and flank pain, hematuria, left-side lithotripsy 2 days earlier COMPARISON: KUB May 25 FINDINGS: The right kidney measures 11.9 x 5.1 x 5.3 cm. The left kidney measures 10.9 x 6.2 x 5.2 cm. Renal cortical thickness and echogenicity are normal. No hydronephrosis or suspicious renal mass. Approximately 10 millimeter echogenic focus mid left kidney believed to be the stone or stone fragme nt from recent lithotripsy. Urinary bladder assessed on separate report. IMPRESSION: No hydronephrosis or suspicious renal mass. Approximately 10 mm echogenic focus mid left kidney is believed to be stone or stone fragment from re cent lithotripsy.
--- NOTE | 2018-05-27 13:20 | RAD REPORT ---
EXAM DESCRIPTION: US - Urinary Bladder - 05/27/2018 1:10 pm CLINICAL HISTORY: Hematuria, recent lithotripsy COMPARISON: None. FINDINGS: No urinary bladder wall thickening or mass. No large stone or stone fragment identifiable. Minimal echogenic debris within the lumen could potentially be small fragments of stone. IMPRESSION: No large stone or large stone fragment identifiable. No bladder wall thickening or mass. Minimal punctate echogenic foci could be very small stone fragments.
[2018-05-27] MEDS ORDERED: NA CHLORIDE 0.9% 1,000 ML ONE (13:26)
[2018-05-27 13:38] LABS: Hematocrit 40.8 % (39.6-49.0); MCH 34.9 pg (27.0-35.0); MCV 101.2 fL (80-100); RBC Red Blood Cell Count 4.03 M/uL (4.33-5.43)
[2018-05-27 13:39] LABS: Absolute Lymphocytes (CBC) 2.9 K/uL (0.7-4.9); Absolute Monocytes 0.8 K/uL (0.1-1.3); Absolute Neutrophil 4.5 K/uL (1.8-8.0); Basophils % 0.5 % (0-1.3); Eosinophils % 2.9 % (0-4.4); Lymphocytes % 34.3 % (15.3-44.8); MPV 9.2 fL (7.6-11.3); Monocytes % 9.8 % (3.3-12.3)
[2018-05-27 13:41] LABS: Protime INR 0.96
[2018-05-27] MEDS ORDERED: NA CHLORIDE 0.9% 500 ML ONE (13:44)
[2018-05-27] MEDS ORDERED: D50W 25 GM/50 ML SYRINGE IV ONE (13:44)
[2018-05-27 14:13] LABS: ALT/SGPT 21 U/L (12-78); AST/SGOT 17 U/L (15-37); Alkaline Phosphatase 57 U/L (45-117); BUN Blood Urea Nitrogen 15 mg/dL (7-18); Bicarbonate 29 mmol/L (21-32); Bilirubin Direct 0.2 mg/dL (0-0.2); Bilirubin Total 0.6 mg/dL (0.2-1.0); Creatine Phosphokinase 71 U/L (39-308); Glucose Level 77 mg/dL (74-106); Potassium 3.9 mmol/L (3.5-5.1); Protein, Total 7.8 g/dL (6.4-8.2); Sodium Level 138 mmol/L (136-145)
[2018-05-27 14:14] LABS: CKMB Creatine Kinase MB < 1.0 ng/mL (0.3-3.6)
[2018-05-27 15:09] LABS: Urine Blood 3+ (NEG); Urine Glucose 2+ (NEG); Urine Protein 3+ (NEG); Urine pH 5.5 (5.0-7.0)
--- NOTE | 2018-05-27 15:28 | ER ---
Nurse's Notes [facility] Name: Domenic Beltre Age: 58 yrs Sex: Male : 1960 Arrival Date: 05/27/2018 Time: 11:21 Bed 20 Private MD: Mitch Gonzalez Diagnosis: Hematuria, unspecified;Hypoglycemia, unspecified Presentation: 05/27 11:26 Presenting complaint: Patient states: Was seen by for lithotripsy on Thursday sg May 25, 2018, Today has a bright red blood and dark urine this morning, reports tingling and headache with weakness that started yesterday. Transition of care: patient was not received from another setting of care. Onset of symptoms was May 27, 2018. Risk Assessment: Do you want to hurt yourself or someone else? Patient reports no desire to harm self or others. Initial Sepsis Screen: Does the patient meet any 2 criteria? No. Patient's initial sepsis screen is negative. Does the patient have a suspected source of infection? No. Patient's initial sepsis screen is negative. Care prior to arrival: None. 11:26 Method Of Arrival: Ambulatory sg 11:26 Acuity: CORNELIUS 3 sg Historical: - Allergies: 11:30 Aspirin; sg 11:30 PENICILLINS; sg - Home Meds: 11:30 Hydrocodone-Acetaminophen Oral [Active]; Flomax Oral [Active]; sg - PMHx: 11:30 Kidney stones; sg - PSHx: 11:30 Lithotripsy; Appendectomy; sg - Immunization history:: Adult Immunizations up to date. - Social history:: Smoking status: Patient/guardian denies using tobacco. - Ebola Screening: : Patient negative for fever greater than or equal to 101.5 degrees Fahrenheit, and additional compatible Ebola Virus Disease symptoms Patient denies exposure to infectious person Patient denies travel to an Ebola-affected area in the 21 days before illness onset No symptoms or risks identified at this time. Screenin:32 Abuse screen: Denies threats or abuse. Denies injuries from another. Nutritional aj1 screening: No deficits noted. Tuberculosis screening: No symptoms or risk factors identified. 16:00 Fall Risk None identified. aj1 Assessment: 12:32 General: Appears in no apparent distress. uncomfortable, Behavior is calm, cooperative, aj1 appropriate for age. Pain: Complains of pain in face and scalp Pain does not radiate. Pain currently is 2 out of 10 on a pain scale. Quality of pain is described as aching. Neuro: Level of Consciousness is awake, alert, obeys commands, Oriented to person, place, time, situation, Speech is normal, Facial symmetry appears normal, Reports dizziness, headache numbness in right arm, left arm, right leg and left leg weakness generalized. Cardiovascular: Heart tones S1 S2 present Patient's skin is warm and dry. Rhythm is regular. Respiratory: Reports shortness of breath on exertion Airway is patent Respiratory effort is even, unlabored, Respiratory pattern is regular, symmetrical, Breath sounds are clear bilaterally. GI: No signs and/or symptoms were reported involving the gastrointestinal system. : Reports bloody urine. EENT: No signs and/or symptoms were reported regarding the EENT system. Derm: No signs and/or symptoms reported regarding the dermatologic system. Skin is pink, warm \T\ dry. normal. Musculoskeletal: No signs and/or symptoms reported regarding the musculoskeletal system. Circulation, motion, and sensation intact. 12:40 Reassessment: XRay at bedside. aj1 12:46 Reassessment: Ultrasound at bedside. aj1 13:35 Reassessment: Patient appears in no apparent distress at this time. No changes from aj1 previously documented assessment. Patient and/or family updated on plan of care and expected duration. Pain level reassessed. Patient is alert, oriented x 3, equal unlabored respirations, skin warm/dry/pink. 14:52 Reassessment: Patient appears in no apparent distress at this time. No changes from aj1 previously documented assessment. Patient and/or family updated on plan of care and expected duration. Pain level reassessed. Patient is alert, oriented x 3, equal unlabored respirations, skin warm/dry/pink. 15:45 Reassessment: Discharge pending KNIFEMAN talking to patient. aj1 16:00 General: Appears in no apparent distress. comfortable, Behavior is calm, cooperative, aj1 appropriate for age. Neuro: Level of Consciousness is awake, alert, obeys commands, Oriented to person, place, time, situation, Speech is normal, Facial symmetry appears normal. Cardiovascular: Patient's skin is warm and dry. Respiratory: Airway is patent Respiratory effort is even, unlabored, Respiratory pattern is regular, symmetrical. Derm: Skin is pink, warm \T\ dry. normal. Musculoskeletal: Circulation, motion, and sensation intact. Vital Signs: 11:28 BP 107 / 71; Pulse 69 MON; Resp 16; Temp 98.6; Pulse Ox 98% on R/A; Weight 89.36 kg sg (R); Height 5 ft. 10 in. (177.80 cm); Pain 2/10; 12:32 BP 114 / 64; Pulse 69; Resp 18; Pulse Ox 99% on R/A; aj1 13:12 BP 127 / 84; Pulse 72; Resp 18; Pulse Ox 100% on R/A; mh5 13:35 BP 104 / 59; Pulse 63; Resp 18; Pulse Ox 99% ; aj1 14:47 BP 111 / 64; Pulse 60; Resp 19; Pulse Ox 98% on R/A; mh5 14:52 BP 110 / 52; Pulse 61; Resp 18; Pulse Ox 99% ; aj1 11:28 Body Mass Index 28.27 (89.36 kg, 177.80 cm) ED Course: 11:21 Patient arrived in ED. sb2 11:22 Mitch Gonzalez DO is Private Physician. sb2 11:28 Triage completed. sg 11:28 Arm band placed on. sg 11:45 Frances Mancuso, SHADI is Primary Nurse. aj1 11:49 Erica Freed FNP-C [facility]. snw 11:49 Hugh Richardson MD is Attending Physician. snw 12:32 Patient has correct armband on for positive identification. campus monitor on. Pulse aj1 ox on. NIBP on. 12:32 No provider procedures requiring assistance completed. aj1 12:42 Chest Single View XRAY In Process Unspecified. EDMS 12:50 Missed attempt(s): 20 gauge in right antecubital area. Bleeding controlled, band aid aj1 applied, catheter tip intact. 12:50 First set of blood cultures drawn T\T\S collected, blood band applied to patient. aj1 13:03 US Rp Exam Complete In Process Unspecified. EDMS 13:03 Urinary Bladder In Process Unspecified. EDMS 13:04 Ultrasound completed. Patient tolerated well. hr 13:15 Inserted saline lock: 20 gauge in left antecubital area, using aseptic technique. Blood aj1 collected. 13:15 Initial lab(s) drawn, by me, sent to lab. Second set of blood cultures drawn. aj1 13:56 EKG done, by cryptographic technician. reviewed by Erica CONNELL. at1 15:26 Asiya Solis MD is Referral Physician. snw 16:29 Patient did not have IV access during this emergency room visit. aj1 Administered Medications: 13:29 Drug: NS 0.9% 1000 ml Route: IV; Rate: 125 ml/hr; Site: left antecubital; aj1 13:45 Drug: D50W 50 ml Route: IVP; Site: left antecubital; aj1 13:45 Drug: NS 0.9% 500 ml Route: IV; Rate: bolus; Site: left antecubital; aj1 Point of Care Testing: Blood Glucose: 13:40 Blood Glucose: 59 mg/dL; aj1 14:21 Blood Glucose: 144 mg/dL; ss Ranges: Outcome: 15:27 Discharge ordered by MD. snw 16:29 Discharged to home ambulatory, with family. aj1 16:29 Condition: good 16:29 Discharge instructions given to patient, family, Instructed on discharge instructions, follow up and referral plans. medication usage, Demonstrated understanding of instructions, follow-up care, medications, Prescriptions given X 1. 16:29 Patient left the ED. aj1 Signatures: Dispatcher [employer] EDFrances Payne, SHADI RN aj1 Norbert Huff, RN RN Erica Amor, CADASTRAL ENGINEER-C CADASTRAL ENGINEER-Csnw Faiza King Shelby, RN RN Emily stern, parts department manager EKG Tat1 Blanche Bailey 5 Ellie Diaz 2
--- NOTE | 2018-05-27 15:28 | EDPHYS ---
Physician Documentation [facility] Name: Domenic Beltre Age: 58 yrs Sex: Male : 1960 Arrival Date: 05/27/2018 Time: 11:21 Bed 20 Private MD: [facility] ED Physician Hugh Richardson HPI: 05/27 13:09 This 58 yrs old Male presents to ER via Ambulatory with complaints of Post snw Surgical Bleeding. 13:09 Onset: The symptoms/episode began/occurred suddenly, and became persistent. Associated snw signs and symptoms: Pertinent positives: parasthesias, weakness, hematuria. The patient has not experienced similar symptoms in the past. The patient has been recently seen by a physician: Dr. Solis. Historical: - Allergies: 11:30 Aspirin; sg 11:30 PENICILLINS; sg - Home Meds: 11:30 Hydrocodone-Acetaminophen Oral [Active]; Flomax Oral [Active]; sg - PMHx: 11:30 Kidney stones; sg - PSHx: 11:30 Lithotripsy; Appendectomy; sg - Immunization history:: Adult Immunizations up to date. - Social history:: Smoking status: Patient/guardian denies using tobacco. - Ebola Screening: : Patient negative for fever greater than or equal to 101.5 degrees Fahrenheit, and additional compatible Ebola Virus Disease symptoms Patient denies exposure to infectious person Patient denies travel to an Ebola-affected area in the 21 days before illness onset No symptoms or risks identified at this time. ROS: 13:04 Eyes: Negative for injury, pain, redness, and discharge, ENT: Negative for injury, snw pain, and discharge, Neck: Negative for injury, pain, and swelling, Cardiovascular: Negative for chest pain, palpitations, and edema, Respiratory: Negative for shortness of breath, cough, wheezing, and pleuritic chest pain. 13:04 Back: Negative for injury and pain, : Negative for injury, discharge, and swelling, dealing with renal calculi x 15yr. Had lithotripsy 2 days ago, pt states he has been weak and mildly off balance since procedure. Taking flomax for the first time. Will evaluate MS/Extremity: Negative for injury and deformity, Skin: Negative for injury, rash, and discoloration, Neuro: Negative for headache, weakness, numbness, tingling, and seizure. 13:04 Constitutional: Positive for fatigue, malaise. 13:04 Abdomen/GI: Positive for "indigestion" and feeling burning in mid upper abdomen. Exam: 13:10 Head/Face: Normocephalic, atraumatic. Eyes: Pupils equal round and reactive to light, snw extra-ocular motions intact. Lids and lashes normal. Conjunctiva and sclera are non-icteric and not injected. Cornea within normal limits. Periorbital areas with no swelling, redness, or edema. ENT: Nares patent. No nasal discharge, no septal abnormalities noted. Tympanic membranes are normal and external auditory canals are clear. Oropharynx with no redness, swelling, or masses, exudates, or evidence of obstruction, uvula midline. Mucous membranes moist. Neck: Trachea midline, no thyromegaly or masses palpated, and no cervical lymphadenopathy. Supple, full range of motion without nuchal rigidity, or vertebral point tenderness. No Meningismus. Chest/axilla: Normal chest wall appearance and motion. Nontender with no deformity. No lesions are appreciated. Cardiovascular: Regular rate and rhythm with a normal S1 and S2. No gallops, murmurs, or rubs. Normal PMI, no JVD. No pulse deficits. Respiratory: Lungs have equal breath sounds bilaterally, clear to auscultation and percussion. No rales, rhonchi or wheezes noted. No increased work of breathing, no retractions or nasal flaring. 13:10 Back: No spinal tenderness. No costovertebral tenderness. Full range of motion. Skin: Warm, dry with normal turgor. Normal color with no rashes, no lesions, and no evidence of cellulitis. MS/ Extremity: Pulses equal, no cyanosis. Neurovascular intact. Full, normal range of motion. Neuro: Awake and alert, GCS 15, oriented to person, place, time, and situation. Cranial nerves II-XII grossly intact. Motor strength 5/5 in all extremities. Sensory grossly intact. Cerebellar exam normal. Normal gait. 13:10 Constitutional: The patient appears alert, awake, frail, uncomfortable. 13:10 Abdomen/GI: Inspection: abdomen appears normal, Bowel sounds: diminished, Palpation: mild abdominal tenderness, moderate abdominal tenderness, in all quadrants. Vital Signs: 11:28 BP 107 / 71; Pulse 69 MON; Resp 16; Temp 98.6; Pulse Ox 98% on R/A; Weight 89.36 kg sg (R); Height 5 ft. 10 in. (177.80 cm); Pain 2/10; 12:32 BP 114 / 64; Pulse 69; Resp 18; Pulse Ox 99% on R/A; aj1 13:12 BP 127 / 84; Pulse 72; Resp 18; Pulse Ox 100% on R/A; mh5 13:35 BP 104 / 59; Pulse 63; Resp 18; Pulse Ox 99% ; aj1 14:47 BP 111 / 64; Pulse 60; Resp 19; Pulse Ox 98% on R/A; mh5 14:52 BP 110 / 52; Pulse 61; Resp 18; Pulse Ox 99% ; aj1 11:28 Body Mass Index 28.27 (89.36 kg, 177.80 cm) MDM: 11:49 Patient medically screened. snw 13:11 Data reviewed: vital signs, nurses notes. Data interpreted: Pulse oximetry: on room air snw is 99 %. Interpretation: normal. Counseling: I had a detailed discussion with the patient and/or guardian regarding: the historical points, exam findings, and any diagnostic results supporting the discharge/admit diagnosis. ED course: urine with maroon coloration, no noted clots. 15:33 Physician consultation: Asiya Solis MD was called at 15:33, was contacted at 15:33, snw regarding patient's condition, outpatient follow-up, Thursday okay to start outpt antibiotics. 05/27 12:06 Order name: T\\T\\S; Complete Time: 14:12 snw 05/27 12:06 Order name: Basic Metabolic Panel; Complete Time: 14:25 snw 05/27 12:06 Order name: Blood Culture Adult (2) snw 05/27 12:06 Order name: CBC with Diff; Complete Time: 14:12 snw 05/27 12:06 Order name: Ckmb; Complete Time: 14:25 snw 05/27 12:06 Order name: CPK; Complete Time: 14:25 snw 05/27 12:06 Order name: Lactate; Complete Time: 13:55 snw 05/27 12:06 Order name: LFT's; Complete Time: 14:25 snw 05/27 12:06 Order name: Procalcitonin; Complete Time: 14:25 snw 05/27 12:06 Order name: Protime (+inr); Complete Time: 13:49 snw 05/27 12:06 Order name: Ptt, Activated; Complete Time: 13:49 snw 05/27 12:06 Order name: Sed Rate; Complete Time: 14:12 snw 05/27 12:06 Order name: Troponin (emerg Dept Use Only); Complete Time: 13:55 snw 05/27 14:10 Order name: Urine Dipstick--Ancillary (enter results); Complete Time: 15:12 em1 05/27 12:06 Order name: Chest Single View XRAY; Complete Time: 13:12 snw 05/27 12:06 Order name: Accucheck; Complete Time: 13:46 snw 05/27 12:06 Order name: Cardiac monitoring; Complete Time: 12:07 snw 05/27 12:06 Order name: EKG - Nurse/Tech; Complete Time: 14:18 snw 05/27 12:06 Order name: IV Saline Lock - Large Bore; Complete Time: 13:22 snw 05/27 12:06 Order name: Labs collected and sent; Complete Time: 13:22 snw 05/27 12:06 Order name: O2 Per Protocol; Complete Time: 12:07 snw 05/27 12:06 Order name: O2 Sat Monitoring; Complete Time: 12:07 snw 05/27 12:06 Order name: Urine Dipstick-Ancillary (obtain specimen); Complete Time: 13:22 snw 05/27 12:24 Order name: US Rp Exam Complete; Complete Time: 13:25 snw 05/27 13:03 Order name: Urinary Bladder; Complete Time: 13:25 EDMS 05/27 14:32 Order name: ABO/RH no charge; Complete Time: 14:33 EDMS Administered Medications: 13:29 Drug: NS 0.9% 1000 ml Route: IV; Rate: 125 ml/hr; Site: left antecubital; aj1 13:45 Drug: D50W 50 ml Route: IVP; Site: left antecubital; aj1 13:45 Drug: NS 0.9% 500 ml Route: IV; Rate: bolus; Site: left antecubital; aj1 Point of Care Testing: Blood Glucose: 13:40 Blood Glucose: 59 mg/dL; aj1 14:21 Blood Glucose: 144 mg/dL; ss Ranges: Critical Glucose Levels:Adult <50 mg/dl or >400 mg/dl <40 mg/dl or >180 mg/dl Disposition: 16:30 Co-signature as Attending Physician, Hugh Richardson MD. rn Disposition: 05/27/18 15:27 Discharged to Home. Impression: Hematuria, unspecified, Hypoglycemia, unspecified. - Condition is Stable. - Discharge Instructions: Hematuria, Adult, Hypoglycemia, Orthostatic Hypotension, Lithotripsy, Care After. - Prescriptions for Cipro 500 mg Oral Tablet - take 1 tablet by ORAL route every 12 hours for 7 days; 14 tablet. - Medication Reconciliation Form, Thank You Letter, Antibiotic Education, Prescription Opioid Use form. - Follow up: Asiya Solis MD; When: 5 - 6 days; Reason: Recheck today's complaints, Continuance of care, Re-evaluation by your physician. Signatures: Dispatcher [employer] [facility] Frances Mancuso RN RN aj1 Norbert Huff RN RN Erica Freed, DIRECTOR OF TEENAGE ACTIVITIES-C DIRECTOR OF TEENAGE ACTIVITIES-Csnw Hugh Richardson MD MD furniture restorer: (The following items were deleted from the chart) 13:03 12:25 Pelvis Complete+US.RAD.KONSTANTINZ ordered. [facility] 16:29 15:27 05/27/2018 15:27 Discharged to Home. Impression: Hematuria, unspecified; aj1 Hypoglycemia, unspecified. Condition is Stable. Forms are Medication Reconciliation Form, Thank You Letter, Antibiotic Education, Prescription Opioid Use. Follow up: Asiya Solis; When: 5 - 6 days; Reason: Recheck today's complaints, Continuance of care, Re-evaluation by your physician. snw
--- NOTE | 2018-05-27 18:44 | EKG ---
Test Date: 2018-05-27 Test Time: 13:50:54 General Agent: AG/S MEASUREMENT RESULTS: Intervals: Rate: 62 CA: 184 QRSD: 96 QT: 432 QTc: 438 [place]: P: 42 CA: 184 QRS: -25 T: 30 INTERPRETIVE STATEMENTS: Normal sinus rhythm Normal ECG Compared to ECG 05/25/2018 08:31:12 Sinus bradycardia no longer present Electronically Signed On 05-27-18 18:43:26 CDT by David Anton
== END 2018-05-27 16:29 | disposition home or self-care (01) ==
LOC: ER 11:18
DX: E16.2 Hypoglycemia, unspecified (principal); Z88.0 Allergy status to penicillin; Z88.6 Allergy status to analgesic agent; Z87.442 Personal history of urinary calculi
CPT/HCPCS: 36415; 71045; 76770; 76857; 80048; 80076; 81003; 82550; 82553; 82962; 83605; 84145; 84484; 85025; 85610; 85652; 85730; 86850; 86900; 86901; 87040; 93005; 96374; 99285; J7030

== ENCOUNTER 2019-05-02 11:33 | Emergency (ER) | payer OTHER ==
--- OUTSIDE RECORDS SUMMARY | 2019-05-02 11:41 | XMS REPORT ---
[...] mellitus without E11.9 Active complication, unspecified whether chcf insulin use Problem Mixed hyperlipidemia E78.2 Active Assessment Follow-up exam V67.9 Active Problem HTN (hypertension), benign I10 Active Medications Medication Code Code Instructions Start End Status Dosage System Date Date Potassium [facility] 13100887538 15 MEQ (1620 MG) Active 1 tablet Citrate ER Orally Twice a with meals day Metformin HCl [facility] 58828091334 1000 MG Orally April 26, Active 1 tablet twice a day 2017 with a meal Tradjenta [facility] 07070351419 5 MG Orally Once April 26, Active 1 tablet a day 2017 Jardiance [facility] 77471721723 10 MG Orally April 26, Active 1 tablet Once a day 2017 Simvastatin ND 31746368507 20 MG Orally April 22, Active 1 tablet Once a day 2018 in the evening Losartan [facility] 58272465024 100 MG Orally Active 1 tablet Potassium Once a day Results No Known Results Summary Purpose eClinicalWorks Submission
--- OUTSIDE RECORDS SUMMARY | 2019-05-02 11:41 | XMS REPORT ---
:1960 Author Organization eClinicalWorks Care Team Providers Name Role Phone Carlos Mitch Provider Role Unavailable Allergies No Known Allergies Problems Problem Type Condition Code Onset Dates Condition Status Problem History of kidney stones Z87.442 Active Problem Type 2 diabetes mellitus without E11.9 Active complication, unspecified whether terminal operations manager insulin use Problem Mixed hyperlipidemia E78.2 Active Assessment Type 2 diabetes mellitus without E11.9 Active complication, unspecified whether terminal operations manager insulin use Problem HTN (hypertension), benign I10 Active Medications Medication Code Code Instructions Start End Date Status Dosage System Date Metformin HCl [facility] 49508697455 1000 MG Orally April 26, Active 1 tablet twice a day 2017 with a meal Results No Known Results Summary Purpose eClinicalWorks Submission
--- OUTSIDE RECORDS SUMMARY | 2019-05-02 11:41 | XMS REPORT | Clinical Summary ---
:1960 Author Organization [facility] [employer] Address [address] [place] [address] Care Team Providers Name Role Phone Asked, No Pcp Primary Care Provider Unavailable Allergies Active Allergy Reactions Severity Noted Date Comments Aspirin 05/22/2018 Penicillins 05/22/2018 Medications Medication Sig Dispensed Refills Start Date End Date Status potassium citrate Take 15 mEq by 0 Active (UROCIT-K) 15 mEq tablet mouth 2 (two) extended release times a day. simvastatin (ZOCOR) 20 Take 20 mg by 0 Active MG tablet mouth nightly. linagliptin (TRADJENTA) Take 5 mg by 0 Active 5 mg tablet mouth daily. empagliflozin Take 10 mg by 0 Active (JARDIANCE) 10 mg tablet mouth daily. tablet metFORMIN (GLUCOPHAGE) Take 1,000 mg by 0 Active 1,000 mg tablet mouth 2 (two) times a day with meals. losartan (COZAAR) 100 MG Take 100 mg by 0 Active tablet mouth daily. Active Problems Not on file Encounters Date Type Specialty Care Team Description 05/22/2018 Emergency Emergency Medicine Sammy Mayorga Hematuria, gross (Primary Dx); DO Filiberto Kidney stone on left side 05/22/2018 Emergency Emergency Medicine after 05/01/2018 Social History Tobacco Use Types Packs/Day Years Used Date Never Smoker Smokeless Tobacco: Never Used Alcohol Use Drinks/Week oz/Week Comments No Sex Assigned at Date Recorded Not on file Job Start Date Occupation Industry Not on file Not on file Not on file Travel History Travel Start Travel End No recent travel history available. Last Filed Vital Signs Vital Sign Reading [...] Last Done Comments COLON CANCER SCREENING 2011 SHINGLES VACCINES (#1) 2011 INFLUENZA VACCINE 06/23/2019 Procedures Procedure Name Priority Date/Time Associated Comments Diagnosis CT RENAL STONE STAT 05/22/2018 7:13 PM Results for this PROTOCOL CDT procedure are in the results section. URINALYSIS STAT 05/22/2018 6:42 PM Results for this CDT procedure are in the results section. after 05/01/[address] Renal Stone Protocol (05/22/2018 7:13 PM CDT) Specimen Narrative Performed At CT RENAL STONE PROTOCOL [facility] CLINICAL INDICATION:grosspainless hematuria TECHNIQUE: Multidetector CT of [...] than right kidney. No ureterolithiasis or hydronephrosis. [facility]-[id number] Procedure Note Interface, Radiology Results Incoming - [...] than right kidney. No ureterolithiasis or hydronephrosis. [facility]-[id number] Performing Organization Address City/State/Zipcode Phone Number [facility] [address] [place] [address] Urinalysis (05/22/2018 6:42 PM CDT) Glucose, UA 2+ (A) Negative [facility]PARTMENT OF PATHOLOGY [facility] GENOMIC MEDICINE, [facility] Bilirubin, UA Negative Negative DEPARTMENT OF PATHOLOGY AND GENOMIC MEDICINE, [facility] Ketones, UA Negative Negative DEPARTMENT OF PATHOLOGY AND GENOMIC MEDICINE, [facility] Specific gravity, UA 1.015 1.001 - 1.035 DEPARTMENT OF PATHOLOGY AND GENOMIC MEDICINE, [facility] Blood, UA Large (A) Negative [facility] pH, UA 5.5 5.0 - 8.5 DEPARTMENT OF PATHOLOGY AND GENOMIC MEDICINE, [facility] Protein, UA Negative Negative DEPARTMENT OF PATHOLOGY AND GENOMIC MEDICINE, [facility] Urobilinogen, UA <2.0 <2.0 [facility] Nitrite, UA Negative Negative [facility] Leukocyte esterase, Negative Negative [facility] Color, UA Yellow [facility] Appearance, UA Cloudy [facility] Specimen Urine Performing Organization Address City/State/Zipcode Phone Number DEPARTMENT OF PATHOLOGY AND [address] [place] [phone] [facility] after 05/01/2018 ([place]) [address] [place] [phone] Advance Directives Patient has advance care planning documents on file. For more information, please contact:[place] [address]
--- OUTSIDE RECORDS SUMMARY | 2019-05-02 11:41 | XMS REPORT ---
:1960 Author Organization eClinicalWorks Care Team Providers Name Role Phone Carlos Mitch Provider Role Unavailable Allergies No Known Allergies Problems Problem Type Condition Code Onset Dates Condition Status Problem History of kidney stones Z87.442 Active Problem Type 2 diabetes mellitus without E11.9 Active complication, unspecified whether terminal block assembler insulin use Problem Mixed hyperlipidemia E78.2 Active Problem HTN (hypertension), benign I10 Active Assessment Type 2 diabetes mellitus without E11.9 Active complication, unspecified whether assisted insulin use Medications Medication Code Code Instructions Start End Status Dosage System Date Date Tradjenta [facility] 26218837096 5 MG Orally April 26, Active 1 tablet Once a day 2017 Jardiance [facility] 24805464866 10 MG Orally April 26, Active 1 tablet Once a day 2017 Metformin HCl ND 89029275767 1000 MG Orally April 26, Active 1 tablet twice a day 2017 with a meal Janumet XR [facility] 59174325339 50-1000 MG Inactive 2 tablets Orally Once a with day evening meal Results No Known Results Summary Purpose eClinicalWorks Submission
--- OUTSIDE RECORDS SUMMARY | 2019-05-02 11:41 | XMS REPORT ---
[...] without E11.9 Active complication, unspecified whether intermediate insulin use Problem Mixed hyperlipidemia E78.2 Active Assessment HTN (hypertension), benign I10 Active Assessment Mixed hyperlipidemia E78.2 Active Problem HTN (hypertension), benign I10 Active Assessment Type 2 diabetes mellitus without E11.9 Active complication, unspecified whether intermediate insulin use Medications Medication Code Code Instructions Start End Status Dosage System Date Date Losartan ND 08494450939 100 MG Orally Active 1 tablet Potassium Once a day Potassium [facility] 68824708625 15 MEQ (1620 MG) Active 1 tablet Citrate ER Orally Twice a with meals day Janumet XR ND 57443283606 50-1000 MG Active 2 tablets Orally Once a with day evening meal Simvastatin ND 29150952527 20 MG Orally April 22, Active 1 tablet Once a day 2018 in the evening Results No Known Results Summary Purpose eClinicalWorks Submission
--- OUTSIDE RECORDS SUMMARY | 2019-05-02 11:41 | XMS REPORT ---
[...] mellitus without E11.9 Active complication, unspecified whether fci insulin use Problem Mixed hyperlipidemia E78.2 Active Problem HTN (hypertension), benign I10 Active Assessment Encounter for screening colonoscopy Z12.11 Active Medications Medication Code Code Instructions Start End Status Dosage System Date Date Potassium [facility] 54434300641 15 MEQ (1620 MG) Active 1 tablet Citrate ER Orally Twice a with meals day Janumet XR [facility] 39168832480 50-1000 MG Active 2 tablets Orally Once a with day evening meal Losartan ND 10715224394 100 MG Orally Active 1 tablet Potassium Once a day Results No Known Results Summary Purpose eClinicalWorks Submission
--- OUTSIDE RECORDS SUMMARY | 2019-05-02 11:41 | XMS REPORT ---
:1960 Author Organization eClinicalWorks Care Team Providers Name Role Phone Mitch Gonzalez Provider Role Unavailable Allergies No Known Allergies Problems Problem Type Condition Code Onset Dates Condition Status Assessment Mixed hyperlipidemia E78.2 Active Assessment History of kidney stones Z87.442 Active Problem History of kidney stones Z87.442 Active Problem Type 2 diabetes mellitus without E11.9 Active complication, unspecified whether alf insulin use Problem Mixed hyperlipidemia E78.2 Active Assessment Type 2 diabetes mellitus without E11.9 Active complication, unspecified whether alf insulin use Assessment HTN (hypertension), benign I10 Active Problem HTN (hypertension), benign I10 Active Medications Medication Code Code Instructions Start End Status Dosage System Date Date Potassium [facility] 77894130462 15 MEQ (1620 Active 1 tablet Citrate ER MG) Orally with meals Twice a day Metformin HCl ND 99439083785 1000 MG Orally April 26, Active 1 tablet twice a day 2017 with a meal Tradjenta ND 44263619943 5 MG Orally April 26, Active 1 tablet Once a day 2017 Janumet XR ND 14615515053 50-1000 MG Inactive 2 tablets Orally Once a with day evening meal Losartan ND 91844769942 100 MG Orally Active 1 tablet Potassium Once a day Flomax ND 54195228725 0.4 MG Orally Active 1 capsule Once a day Jardiance [facility] 12119579520 10 MG Orally April 26, Active 1 tablet Once a day 2017 Simvastatin ND 42203983746 20 MG Orally Active 1 tablet Once a day in the evening Results No Known Results Summary Purpose eClinicalWorks Submission
--- OUTSIDE RECORDS SUMMARY | 2019-05-02 11:41 | XMS REPORT ---
[...] mellitus without E11.9 Active complication, unspecified whether exterminator helper termite insulin use Problem HTN (hypertension), benign I10 Active Assessment Type 2 diabetes mellitus without E11.9 Active complication, unspecified whether exterminator helper termite insulin use Assessment History of kidney stones Z87.442 Active Assessment Encounter for preventative adult Z00.01 Active health care exam with abnormal findings Assessment HTN (hypertension), benign I10 Active Medications Medication Code Code Instructions Start End Status Dosage System Date Date Potassium [facility] 27836043286 15 MEQ (1620 MG) Active 1 tablet Citrate ER Orally Twice a with meals day Janumet XR [facility] 76335524412 50-1000 MG Active 2 tablets Orally Once a with day evening meal Losartan ND 78904099620 100 MG Orally Active 1 tablet Potassium Once a day Results No Known Results Immunizations Vaccine Administration Date TDAP > 7 Years-Adacel April 07, 2018 Summary Purpose eClinicalWorks Submission
--- OUTSIDE RECORDS SUMMARY | 2019-05-02 11:42 | XMS REPORT ---
:1960 Author Organization eClinicalWorks Care Team Providers Name Role Phone Sarah Gonzalezh Provider Role Unavailable Allergies, Adverse Reactions, Alerts Substance Reaction Event Type penicillin pass out Drug Allergy aspirin upset stomach Drug Allergy Problems Problem Type Condition Code Onset Dates Condition Status Assessment Muscle pain M79.10 Active Assessment Skin tag L91.8 Active Assessment Skin irritation R23.8 Active Problem Mixed hyperlipidemia E78.2 Active Problem History of kidney stones Z87.442 Active Problem Seasonal allergies J30.2 Active Assessment Other acute back pain M54.9 Active Problem Type 2 diabetes mellitus without E11.9 Active complication, unspecified whether watermelon inspector insulin use Problem HTN (hypertension), benign I10 Active Medications Medication Code Code Instructions Start End Status Dosage System Date Date Losartan [facility] 84038991305 100 MG Orally Active 1 tablet Potassium Once a day Metformin HCl [facility] 87341618725 1000 MG Orally Active 1 tablet twice a day with a meal Jardiance [facility] 27340567139 10 MG Active TAKE ONE TABLET BY MOUTH DAILY Flomax ND 17267240955 0.4 MG Orally Active 1 capsule Once a day Losartan ND 90610211416 100 MG Orally Active 1 tablet Potassium Once a day Flonase ND 57568112584 50 MCG/ACT Oct 04, Active 2 sprays Nasally Once a 2018 each day nostril prn Potassium [facility] 56128747448 15 MEQ (1620 MG) Active 1 tablet Citrate ER Orally Twice a with meals day Metformin HCl ND 38668011469 1000 MG Orally Active 1 tablet twice a day with a meal Tradjenta ND 17345036081 5 MG Active TAKE ONE TABLET BY MOUTH DAILY Simvastatin ND 18882634031 20 MG Orally Active 1 tablet Once a day in the evening Simvastatin [facility] 51757866751 20 MG Orally Active 1 tablet Once a day in the evening Results No Known Results Summary Purpose eClinicalWorks Submission
--- OUTSIDE RECORDS SUMMARY | 2019-05-02 11:42 | XMS REPORT ---
:1960 Author Organization eClinicalWorks Care Team Providers Name Role Phone Carlos [facility] Provider Role Unavailable Allergies, Adverse Reactions, Alerts Substance Reaction Event Type penicillin pass out Drug Allergy aspirin upset stomach Drug Allergy Problems Problem Type Condition Code Onset Dates Condition Status Assessment History of kidney stones Z87.442 Active Assessment HTN (hypertension), benign I10 Active Assessment Mixed hyperlipidemia E78.2 Active Assessment Bereavement due to life event Z63.4 Active Problem Mixed hyperlipidemia E78.2 Active Problem History of kidney stones Z87.442 Active Problem Seasonal allergies J30.2 Active Assessment Type 2 diabetes mellitus without E11.9 Active complication, unspecified whether retirement insulin use Problem Type 2 diabetes mellitus without E11.9 Active complication, unspecified whether legal librarian insulin use Problem HTN (hypertension), benign I10 Active Medications Medication Code Code Instructions Start End Status Dosage System Date Date Losartan [facility] 78863905121 100 MG Orally Active 1 tablet Potassium Once a day Simvastatin ND 73048627463 20 MG Orally Active 1 tablet Once a day in the evening Jardiance [facility] 35619669610 10 MG Active TAKE ONE TABLET BY MOUTH DAILY Losartan ND 47540744268 100 MG Orally Active 1 tablet Potassium Once a day Metformin HCl [facility] 06517051367 1000 MG Orally Active 1 tablet twice a day with a meal Tradjenta [facility] 28949106030 5 MG Active TAKE ONE TABLET BY MOUTH DAILY Flomax ND 18569358293 0.4 MG Orally Active 1 capsule Once a day Metformin HCl ND 53535661512 1000 MG Orally Active 1 tablet twice a day with a meal Jardiance [facility] 55192963159 10 MG Orally Active 1 tablet Once a day Tradjenta [facility] 50585778588 5 MG Orally Inactive 1 tablet Once a day Flonase ND 62441480891 50 MCG/ACT Oct 04, Active 2 sprays Nasally Once a 2018 each day nostril prn Potassium [facility] 78802264005 15 MEQ (1620 Active 1 tablet Citrate ER MG) Orally with meals Twice a day Simvastatin [facility] 93634925079 20 MG Orally Active 1 tablet Once a day in the evening Results No Known Results Summary Purpose eClinicalWorks Submission
--- OUTSIDE RECORDS SUMMARY | 2019-05-02 11:42 | XMS REPORT ---
:1960 Author Organization eClinicalWorks Care Team Providers Name Role Phone Carlos Mitch Provider Role Unavailable Allergies No Known Allergies Problems Problem Type Condition Code Onset Dates Condition Status Problem Mixed hyperlipidemia E78.2 Active Problem History of kidney stones Z87.442 Active Problem Seasonal allergies J30.2 Active Problem Type 2 diabetes mellitus without E11.9 Active complication, unspecified whether half-way insulin use Problem HTN (hypertension), benign I10 Active Medications Medication Code Code Instructions Start End Date Status Dosage System Date Losartan [facility] 22539598590 100 MG Orally Active 1 tablet Potassium Once a day Results No Known Results Summary Purpose eClinicalWorks Submission
--- OUTSIDE RECORDS SUMMARY | 2019-05-02 11:42 | XMS REPORT ---
:1960 Author Organization eClinicalWorks Care Team Providers Name Role Phone Carlos Mitch Provider Role Unavailable Allergies, Adverse Reactions, Alerts [...] mellitus without E11.9 Active complication, unspecified whether meterman insulin use Problem Type 2 diabetes mellitus without E11.9 Active complication, unspecified whether intermediate insulin use Problem HTN (hypertension), benign I10 Active Medications Medication Code Code Instructions Start End Status Dosage System Date Date Synjardy XR [facility] 83790361441 10-1000 MG March 30, Jun 28, Active 1 tablet Orally Once a 2018 2018 with day breakfast Metformin HCl [facility] 99372039206 1000 MG Orally Inactive 1 tablet twice a day with a meal Potassium [facility] 92259517019 15 MEQ (1620 Active 1 tablet Citrate ER MG) Orally with meals Twice a day Simvastatin [facility] 50977354108 20 MG Orally Active 1 tablet in Once a day the evening Flomax [facility] 85399871841 0.4 MG Orally Active 1 capsule Once a day Losartan [facility] 00090629323 100 MG Orally Active 1 tablet Potassium Once a day Jardiance [facility] 42856461700 10 MG Orally March 30, Inactive 1 tablet Once a day 2018 Jardiance [facility] 68023661719 10 MG Active TAKE ONE TABLET BY MOUTH DAILY Simvastatin [facility] 52829949561 40 MG Orally Active 1 tablet in Once a day the evening Tradjenta [facility] 66313598648 5 MG Active TAKE ONE TABLET BY MOUTH DAILY Losartan [facility] 27029369476 100 MG Orally Active 1 tablet Potassium Once a day Flonase [facility] 80705064983 50 MCG/ACT Nov 12, Active 2 sprays Nasally Once a 2018 each day nostril prn Results No Known Results Summary Purpose eClinicalWorks Submission
[2019-05-02] MEDS ORDERED: NA CHLORIDE 0.9% 2,000 ML ONE (12:53)
[2019-05-02 13:09] LABS: Absolute Lymphocytes (CBC) 1.7 K/uL (0.7-4.9); Absolute Monocytes 0.9 K/uL (0.1-1.3); Absolute Neutrophil 7.6 K/uL (1.8-8.0); Basophils % 0.2 % (0-1.3); Eosinophils % 2.6 % (0-4.4); Hematocrit 47.7 % (39.6-49.0); Lymphocytes % 16.5 % (15.3-44.8); MPV 9.5 fL (7.6-11.3); Monocytes % 8.4 % (3.3-12.3); RBC Red Blood Cell Count 4.65 M/uL (4.33-5.43)
--- NOTE | 2019-05-02 13:11 | EKG ---
Test Date: 2019-05-02 Test Time: 12:42:03 Communication Manager: ROMARIO MEASUREMENT RESULTS: Intervals: Rate: 69 AL: 166 QRSD: 90 QT: 400 QTc: 428 [place]: P: 48 AL: 166 QRS: -20 T: 39 INTERPRETIVE STATEMENTS: Normal sinus rhythm Normal ECG Compared to ECG 05/27/2018 13:50:54 No significant changes Electronically Signed On 05-02-19 13:10:26 CDT by David Anton
[2019-05-02 13:12] LABS: Protime INR 0.95
[2019-05-02] MEDS ORDERED: FAMOTIDINE 20 MG/2 ML VIAL IV ONE (13:14)
[2019-05-02] MEDS ORDERED: ONDANSETRON 4 MG/2 ML VIAL ONE (13:14)
[2019-05-02 13:17] LABS: ALT/SGPT 31 U/L (12-78); AST/SGOT 26 U/L (15-37); Albumin 4.3 g/dL (3.4-5.0); Alkaline Phosphatase 61 U/L (45-117); BUN Blood Urea Nitrogen 24 mg/dL (7-18); Bicarbonate 27 mmol/L (21-32); Bilirubin Direct 0.2 mg/dL (0-0.2); Bilirubin Total 1.2 mg/dL (0.2-1.0); Glucose Level 117 mg/dL (74-106); Magnesium 2.7 mg/dL (1.8-2.4); NT PRO-BNP 29 pg/mL (<125); Potassium 4.1 mmol/L (3.5-5.1); Protein, Total 8.6 g/dL (6.4-8.2); Sodium Level 140 mmol/L (136-145); Troponin (Emerg Dept Use Only) < 0.02 ng/mL (0.0-0.045)
--- NOTE | 2019-05-02 14:23 | EDPHYS ---
Physician Documentation [facility] Name: Domenic Beltre Age: 59 yrs Sex: Male : 1960 Arrival Date: 05/02/2019 Time: 11:36 Bed 15 Private MD: ED Physician Rei Alfred HPI: 05/02 12:36 This 59 yrs old Male presents to ER via Ambulatory with complaints of Nausea, gail Diarrhea. 12:36 The patient presents to the emergency department with nausea, vomiting, that is gail continuous. Onset: The symptoms/episode began/occurred 2 day(s) ago. Possible causes: unknown. The symptoms are aggravated by nothing. The symptoms are alleviated by nothing. Associated signs and symptoms: The patient has no apparent associated signs or symptoms. The patient has not experienced similar symptoms in the past. Historical: - Allergies: 11:40 Aspirin; aj 11:40 PENICILLINS; aj - Home Meds: 11:40 Flomax Oral [Active]; Hydrocodone-Acetaminophen Oral [Active]; POTASSIUM CITRATE er 15 hj meq BID (PT STATES HE ONLY TAKES DAILY) [Active]; - PMHx: 11:40 Kidney stones; hj - PSHx: 11:40 Lithotripsy; Appendectomy; hj - Immunization history:: Adult Immunizations up to date. - Social history:: Smoking status: Patient/guardian denies using tobacco, Patient/guardian denies using alcohol. - Ebola Screening: : Patient negative for fever greater than or equal to 101.5 degrees Fahrenheit, and additional compatible Ebola Virus Disease symptoms Patient denies exposure to infectious person Patient denies travel to an Ebola-affected area in the 21 days before illness onset. ROS: 12:38 Constitutional: Negative for fever, chills, and weight loss, Eyes: Negative for injury, gail pain, redness, and discharge, ENT: Negative for injury, pain, and discharge, Neck: Negative for injury, pain, and swelling, Cardiovascular: Negative for chest pain, palpitations, and edema, Respiratory: Negative for shortness of breath, cough, wheezing, and pleuritic chest pain, Back: Negative for injury and pain, : Negative for injury, bleeding, discharge, and swelling, MS/Extremity: Negative for injury and deformity, Skin: Negative for injury, rash, and discoloration, Neuro: Negative for headache, weakness, numbness, tingling, and seizure, Psych: Negative for depression, anxiety, suicide ideation, homicidal ideation, and hallucinations, Allergy/Immunology: Negative for hives, rash, and allergies, Endocrine: Negative for neck swelling, polydipsia, polyuria, polyphagia, and marked weight changes, Hematologic/Lymphatic: Negative for swollen nodes, abnormal bleeding, and unusual bruising. 12:38 Abdomen/GI: Positive for nausea and vomiting. Exam: 12:38 Constitutional: This is a well developed, well nourished patient who is awake, alert, gail and in no acute distress. Head/Face: Normocephalic, atraumatic. Eyes: Pupils equal round and reactive to light, extra-ocular motions intact. Lids and lashes normal. Conjunctiva and sclera are non-icteric and not injected. Cornea within normal limits. Periorbital areas with no swelling, redness, or edema. ENT: Nares patent. No nasal discharge, no septal abnormalities noted. Tympanic membranes are normal and external auditory canals are clear. Oropharynx with no redness, swelling, or masses, exudates, or evidence of obstruction, uvula midline. Mucous membranes moist. Neck: Trachea midline, no thyromegaly or masses palpated, and no cervical lymphadenopathy. Supple, full range of motion without nuchal rigidity, or vertebral point tenderness. No Meningismus. Chest/axilla: Normal chest wall appearance and motion. Nontender with no deformity. No lesions are appreciated. Cardiovascular: Regular rate and rhythm with a normal S1 and S2. No gallops, murmurs, or rubs. Normal PMI, no JVD. No pulse deficits. Respiratory: Lungs have equal breath sounds bilaterally, clear to auscultation and percussion. No rales, rhonchi or wheezes noted. No increased work of breathing, no retractions or nasal flaring. Abdomen/GI: Soft, non-tender, with normal bowel sounds. No distension or tympany. No guarding or rebound. No evidence of tenderness throughout. Back: No spinal tenderness. No costovertebral tenderness. Full range of motion. Male : Normal genitalia with no discharge or lesions. Skin: Warm, dry with normal turgor. Normal color with no rashes, no lesions, and no evidence of cellulitis. MS/ Extremity: Pulses equal, no cyanosis. Neurovascular intact. Full, normal range of motion. Neuro: Awake and alert, GCS 15, oriented to person, place, time, and situation. Cranial nerves II-XII grossly intact. Motor strength 5/5 in all extremities. Sensory grossly intact. Cerebellar exam normal. Normal gait. Psych: Awake, alert, with orientation to person, place and time. Behavior, mood, and affect are within normal limits. Vital Signs: 11:40 BP 132 / 75; Pulse 76; Resp 18; Temp 98.6; Pulse Ox 98% on R/A; Weight 88.45 kg; Height aj 5 ft. 10 in. (177.80 cm); 12:25 BP 137 / 83; Pulse 76; Resp 18; Pulse Ox 100% on R/A; hj 14:27 BP 135 / 76; Pulse 72; Resp 18; Pulse Ox 100% on R/A; hj 14:52 BP 130 / 75; Pulse 70; Resp 18; Pulse Ox 100% on R/A; hj 11:40 Body Mass Index 27.98 (88.45 kg, 177.80 cm) MDM: 12:12 Patient medically screened. [facility] 12:48 Data reviewed: vital signs, nurses notes, lab test result(s), EKG, radiologic studies, gail plain films. 05/02 13:12 Order name: Lipase; Complete Time: 13:58 EDMS 05/02 13:13 Order name: Basic Metabolic Panel; Complete Time: 13:58 EDWV 05/02 13:13 Order name: Liver (Hepatic) Function; Complete Time: 13:58 EDMS 05/02 13:13 Order name: Troponin (Emerg Dept Use Only); Complete Time: 13:58 EDMS 05/02 13:13 Order name: NT PRO-BNP; Complete Time: 13:58 EDMS 05/02 13:13 Order name: Magnesium; Complete Time: 13:58 EDWV 05/02 12:33 Order name: XRAY Chest (1 view) [facility] 05/02 12:33 Order name: EKG; Complete Time: 13:07 [facility] 05/02 12:33 Order name: Cardiac monitoring; Complete Time: 12:36 [facility] 05/02 12:33 Order name: EKG - Nurse/Tech; Complete Time: 14:45 [facility] 05/02 12:33 Order name: IV Saline Lock; Complete Time: 12:36 [facility] 05/02 12:33 Order name: Labs collected and sent; Complete Time: 12:36 [facility] 05/02 12:33 Order name: O2 Per Protocol; Complete Time: 12:36 [facility] 05/02 12:33 Order name: O2 Sat Monitoring; Complete Time: 12:36 [facility] 05/02 13:13 Order name: CBC with Automated Diff; Complete Time: 13:58 EDMS 05/02 13:13 Order name: Protime (+INR); Complete Time: 13:58 EDMS Administered Medications: 12:41 Drug: NS 0.9% 1000 ml Route: IV; Rate: 1 bolus; Site: right antecubital; hj 14:29 Follow up: IV Status: Completed infusion; IV Intake: 1000ml hj 12:42 Drug: NS 0.9% 1000 ml Route: IV; Rate: 1 bolus; Site: right antecubital; hj 14:29 Follow up: IV Status: Completed infusion; IV Intake: 1000ml hj 13:02 Drug: Zofran 4 mg Route: IVP; Site: right antecubital; hj 14:28 Follow up: Response: No adverse reaction hj 13:03 Drug: Pepcid 20 mg Route: IVP; Site: right antecubital; hj 14:28 Follow up: Response: No adverse reaction hj 14:53 CANCELLED ( changed order): morphine 2 mg IVP once hj Disposition: 05/02/19 14:22 Discharged to Home. Impression: Vomiting, Volume depletion, Dehydration, Unspecified kidney failure - insufficency. - Condition is Stable. - Discharge Instructions: Dehydration, Adult, Nausea and Vomiting, Adult, Nausea and Vomiting, Adult, [id number], Dehydration, Adult, [id number]. - Prescriptions for Zofran 4 mg Oral Tablet - take 1 tablet by ORAL route every 12 hours As needed; 20 tablet. - Medication Reconciliation Form, Thank You Letter, Antibiotic Education, Prescription Opioid Use, Work release form form. - Follow up: Private Physician; When: 2 - 3 days; Reason: Recheck today's complaints, Continuance of care, Re-evaluation by your physician. - Problem is new. - Symptoms have improved. Signatures: Dispatcher [employer] EDEmily Scott RN RN aj Anderson, Corey, MD MD cha Joaquin, Henry, RN RN hj Corrections: (The following items were deleted from the chart) 14:52 14:22 05/02/2019 14:22 Discharged to Home. Impression: Vomiting; Volume depletion; hj Dehydration; Unspecified kidney failure - insufficency. Condition is Stable. Discharge Instructions: Dehydration, Adult, Nausea and Vomiting, Adult, Nausea and Vomiting, Adult, Nepa-lg-Daki, Dehydration, Adult, Uveo-[id number]. Prescriptions for Zofran 4 mg Oral Tablet - take 1 tablet by ORAL route every 12 hours As needed; 20 tablet. and Forms are Medication Reconciliation Form, Thank You Letter, Antibiotic Education, Prescription Opioid Use. Follow up: Private Physician; When: 2 - 3 days; Reason: Recheck today's complaints, Continuance of care, Re-evaluation by your physician. Problem is new. Symptoms have improved. [facility] 14:53 14:53 morphine 2 mg IVP once ordered. hj hj
--- NOTE | 2019-05-02 14:23 | ER ---
Nurse's Notes [facility] Name: Domenic Beltre Age: 59 yrs Sex: Male : 1960 Arrival Date: 05/02/2019 Time: 11:36 Bed 15 Private MD: Diagnosis: Vomiting;Volume depletion;Dehydration;Unspecified kidney failure-insufficency Presentation: 05/02 11:39 Presenting complaint: Patient states: Diarrhea with nausea that started last night. aj Reports dry mouth. Transition of care: patient was not received from another setting of care. Onset of symptoms was May 02, 2019. Risk Assessment: Do you want to hurt yourself or someone else? Patient reports no desire to harm self or others. Initial Sepsis Screen: Does the patient meet any 2 criteria? No. Patient's initial sepsis screen is negative. Does the patient have a suspected source of infection? No. Patient's initial sepsis screen is negative. Care prior to arrival: None. 11:39 Method Of Arrival: Ambulatory aj 11:39 Acuity: CORNELIUS 3 aj Triage Assessment: 11:40 General: Appears in no apparent distress. comfortable, Behavior is calm, cooperative, aj appropriate for age. Pain: Denies pain. Neuro: Level of Consciousness is awake, alert, obeys commands, Oriented to person, place, time, situation, Appropriate for age. Respiratory: Airway is patent Respiratory effort is even, unlabored, Respiratory pattern is regular, symmetrical. GI: Reports nausea, vomiting. Derm: Skin is intact, is healthy with good turgor, Skin is pink, warm \T\ dry. normal. Historical: - Allergies: 11:40 Aspirin; aj 11:40 PENICILLINS; aj - Home Meds: 11:40 Flomax Oral [Active]; Hydrocodone-Acetaminophen Oral [Active]; POTASSIUM CITRATE er 15 hj meq BID (PT STATES HE ONLY TAKES DAILY) [Active]; - PMHx: 11:40 Kidney stones; hj - PSHx: 11:40 Lithotripsy; Appendectomy; hj - Immunization history:: Adult Immunizations up to date. - Social history:: Smoking status: Patient/guardian denies using tobacco, Patient/guardian denies using alcohol. - Ebola Screening: : Patient negative for fever greater than or equal to 101.5 degrees Fahrenheit, and additional compatible Ebola Virus Disease symptoms Patient denies exposure to infectious person Patient denies travel to an Ebola-affected area in the 21 days before illness onset. Screenin:00 Abuse screen: Denies threats or abuse. Denies injuries from another. Nutritional hj screening: No deficits noted. Tuberculosis screening: No symptoms or risk factors identified. Fall Risk None identified. Assessment: 12:00 General: Appears in no apparent distress. uncomfortable, Behavior is calm, cooperative, hj appropriate for age. Pain: Complains of pain in abdomen Pain currently is 5 out of 10 on a pain scale. Neuro: Level of Consciousness is awake, alert, obeys commands, Oriented to person, place, time, situation, Appropriate for age. Cardiovascular: Denies chest pain. Respiratory: Airway is patent Respiratory effort is even, unlabored, Respiratory pattern is regular, symmetrical. GI: Reports upper abdominal pain, diarrhea, nausea, vomiting. GI: Abdomen is non-distended, Bowel sounds present X 4 quads. : No signs and/or symptoms were reported regarding the genitourinary system. EENT: No signs and/or symptoms were reported regarding the EENT system. Derm: No signs and/or symptoms reported regarding the dermatologic system. Musculoskeletal: No signs and/or symptoms reported regarding the musculoskeletal system. 13:15 Reassessment: Patient and/or family updated on plan of care and expected duration. Pain hj level reassessed. Patient is alert, oriented x 3, equal unlabored respirations, skin warm/dry/pink. awaiting results and POC;. Vital Signs: 11:40 BP 132 / 75; Pulse 76; Resp 18; Temp 98.6; Pulse Ox 98% on R/A; Weight 88.45 kg; Height aj 5 ft. 10 in. (177.80 cm); 12:25 BP 137 / 83; Pulse 76; Resp 18; Pulse Ox 100% on R/A; hj 14:27 BP 135 / 76; Pulse 72; Resp 18; Pulse Ox 100% on R/A; hj 14:52 BP 130 / 75; Pulse 70; Resp 18; Pulse Ox 100% on R/A; hj 11:40 Body Mass Index 27.98 (88.45 kg, 177.80 cm) ED Course: 11:36 Patient arrived in ED. tw3 11:40 Triage completed. aj 11:40 Arm band placed on left wrist. Patient placed in an exam room. 12:00 Patient has correct armband on for positive identification. Placed in gown. Bed in low hj position. Call light in reach. Side rails up X2. Adult w/ patient. 12:12 Rei Alfred MD is Attending Physician. gail 12:12 Chapin Fajardo RN is Primary Nurse. hj 12:33 Initial lab(s) drawn, by tx, sent to lab. Inserted saline lock: 20 gauge in right hj antecubital area, using aseptic technique. Blood collected. 14:19 X-ray completed. Portable x-ray completed in exam room. Patient tolerated procedure sw well. 14:20 XRAY Chest (1 view) In Process Unspecified. EDMS 14:51 No provider procedures requiring assistance completed. IV discontinued, intact, hj bleeding controlled, No redness/swelling at site. Pressure dressing applied. Administered Medications: 12:41 Drug: NS 0.9% 1000 ml Route: IV; Rate: 1 bolus; Site: right antecubital; hj 14:29 Follow up: IV Status: Completed infusion; IV Intake: 1000ml hj 12:42 Drug: NS 0.9% 1000 ml Route: IV; Rate: 1 bolus; Site: right antecubital; hj 14:29 Follow up: IV Status: Completed infusion; IV Intake: 1000ml hj 13:02 Drug: Zofran 4 mg Route: IVP; Site: right antecubital; hj 14:28 Follow up: Response: No adverse reaction hj 13:03 Drug: Pepcid 20 mg Route: IVP; Site: right antecubital; hj 14:28 Follow up: Response: No adverse reaction hj 14:53 CANCELLED ( changed order): morphine 2 mg IVP once hj Intake: 14:29 IV: 1000ml; Total: 1000ml. hj 14:29 IV: 1000ml; Total: 2000ml. hj Outcome: 14:22 Discharge ordered by . [facility] 14:51 Discharged to home ambulatory, with family. hj 14:51 Condition: stable 14:51 Discharge instructions given to patient, family, Instructed on discharge instructions, follow up and referral plans. medication usage, Demonstrated understanding of instructions, follow-up care, medications, Prescriptions given X 1. 14:52 Patient left the ED. hj Signatures: Dispatcher [employer] EDMT Hernandez, Emily, RN Rei Hernandez MD MD cha Warren, Shannon sw Joaquin, Henry, RN RN juarez Nur, Ludivina tw3
--- NOTE | 2019-05-02 14:37 | RAD REPORT ---
EXAM DESCRIPTION: RAD - Chest Single View - 05/02/2019 2:20 pm CLINICAL HISTORY: Cough COMPARISON: May 2018 TECHNIQUE: AP portable chest image was obtained 1419 hours . FINDINGS: No acute lung parenchymal process. Lung markings are similar to comparison. Heart and vasc ulature are normal. No measurable pleural effusion and no pneumothorax. No acute bony abnormality see n. No acute aortic findings suspected. IMPRESSION: No acute cardiopulmonary process.
== END 2019-05-02 14:52 | disposition home or self-care (01) ==
LOC: ER 11:33
DX: N19 Unspecified kidney failure (principal); N28.9 Disorder of kidney and ureter, unspecified; E86.0 Dehydration; Z88.0 Allergy status to penicillin
CPT/HCPCS: 36415; 71045; 80048; 80076; 83690; 83735; 83880; 84484; 85025; 85610; 93005; 96361; 96374; 96375; 99284; J2405; J7030

== ENCOUNTER 2022-11-25 22:47 | Emergency (ER) | payer OTHER ==
[2022-11-25] MEDS ORDERED: HYDROMORPHONE HCL 1 MG/ML INJ ONE (23:48)
[2022-11-25] MEDS ORDERED: ONDANSETRON 4 MG/2 ML VIAL ONE (23:48)
[2022-11-26] MEDS ORDERED: ONDANSETRON 4 MG/2 ML VIAL ONE (00:09)
[2022-11-26 00:20] LABS: Absolute Lymphocytes (CBC) 4.7 K/uL (0.7-4.9); Hematocrit 44.3 % (39.6-49.0); MCV 99.3 fL (80-100); MPV 9.2 fL (7.6-11.3); RBC Red Blood Cell Count 4.47 M/uL (4.33-5.43)
[2022-11-26 00:33] LABS: Albumin 3.4 g/dL (3.4-5.0); Bilirubin Total 0.6 mg/dL (0.2-1.0); Protein, Total 7.6 g/dL (6.4-8.2); Troponin High Sensitivity 4.1 pg/mL (<58.9)
[2022-11-26] MEDS ORDERED: MECLIZINE HCL 12.5 MG TAB ONE (00:34)
[2022-11-26 00:35] LABS: Potassium 4.1 mmol/L (3.5-5.1)
[2022-11-26] MEDS ORDERED: PROMETHAZINE INJ 25 MG/ML AMP ONE (00:35)
[2022-11-26 00:46] LABS: Blood Morphology Comment NOT SEEN (NOT SEEN); Platelet Estimate ADEQ
--- NOTE | 2022-11-26 01:20 | EDPHYS ---
Physician Documentation [facility] Name: Domenic Beltre Age: 62 yrs Sex: Male : 1960 Arrival Date: 11/25/2022 Time: 22:53 Bed 14 Private MD: ED Physician Noe Gonzalez HPI: 11/25 23:40 This 62 yrs old Male presents to ER via Wheelchair with complaints of sp3 Dizziness, Flank Pain, Vomiting. 23:40 62-year-old male with history of hypertension, diabetes, kidney stone presents with sp3 chief complaint right upper quadrant pain, right flank pain, dizziness and emesis for the last 12 hours. Patient's symptoms first started yesterday evening and progressed through the night and into today which point he started to have the dizziness and emesis. He states it does not feel like classic kidney stone pattern which he is very familiar with. He is concerned that it may be his gallbladder. His dizziness is described as true vertigo with the room spinning and the emesis is worse after the vertigo symptoms. He has never had been diagnosed with vertigo in the past. He reports no focal neurological deficits, headache, fever, URI symptoms, recent viral illness, back pain, rash, known sick contacts, travel history, or any other symptoms on ROS at this time.. Historical: - Allergies: 23:12 Aspirin; tw5 23:12 PENICILLINS; tw5 - Home Meds: 23:12 Synjardy 12.5-500 mg oral tab 1 tab 2 times per day [Active]; losartan 100 mg oral tab tw5 1 tab once daily [Active]; atorvastatin 80 mg oral tab 1 tab once daily [Active]; - PMHx: 23:12 Kidney stones; Hypertensive disorder; Diabetes mellitus; tw5 - PSHx: 23:12 Appendectomy; tw5 - Immunization history:: Flu vaccine is not up to date. - Social history:: Smoking status: Patient denies any tobacco usage or history of. ROS: 23:42 Eyes: Negative for injury, pain, redness, and discharge, ENT: Negative for injury, sp3 pain, and discharge, Neck: Negative for injury, pain, and swelling, Cardiovascular: Negative for chest pain, palpitations, and edema, Respiratory: Negative for shortness of breath, cough, wheezing, and pleuritic chest pain, Back: Negative for injury and pain, MS/Extremity: Negative for injury and deformity, Skin: Negative for injury, rash, and discoloration, Allergy/Immunology: Negative for hives, rash, and allergies, Endocrine: Negative for neck swelling, polydipsia, polyuria, polyphagia, and marked weight changes, Hematologic/Lymphatic: Negative for swollen nodes, abnormal bleeding, and unusual bruising. 23:42 All other systems are negative. Exam: 23:42 Constitutional: This is a well developed, well nourished patient who is awake, alert, sp3 and in no acute distress. Head/Face: Normocephalic, atraumatic. Eyes: Pupils equal round and reactive to light, extra-ocular motions intact. Lids and lashes normal. Conjunctiva and sclera are non-icteric and not injected. Cornea within normal limits. Periorbital areas with no swelling, redness, or edema. Neck: Trachea midline, no thyromegaly or masses palpated, and no cervical lymphadenopathy. Supple, full range of motion without nuchal rigidity, or vertebral point tenderness. No Meningismus. Chest/axilla: Normal chest wall appearance and motion. Nontender with no deformity. No lesions are appreciated. Cardiovascular: Regular rate and rhythm with a normal S1 and S2. No gallops, murmurs, or rubs. Normal PMI, no JVD. No pulse deficits. Respiratory: Lungs have equal breath sounds bilaterally, clear to auscultation and percussion. No rales, rhonchi or wheezes noted. No increased work of breathing, no retractions or nasal flaring. Skin: Warm, dry with normal turgor. Normal color with no rashes, no lesions, and no evidence of cellulitis. MS/ Extremity: Pulses equal, no cyanosis. Neurovascular intact. Full, normal range of motion. Neuro: Awake and alert, GCS 15, oriented to person, place, time, and situation. Cranial nerves II-XII grossly intact. Motor strength 5/5 in all extremities. Sensory grossly intact. Cerebellar exam normal. Normal gait. Psych: Awake, alert, with orientation to person, place and time. Behavior, mood, and affect are within normal limits. 23:42 Abdomen/GI: Abdomen is tender right upper quadrant without peritoneal signs, rebound or guarding. There is no CVA tenderness. From a dizziness standpoint, there is no horizontal nystagmus and neurologically the patient has a completely normal exam. There are no focal deficits.. 11/26 01:33 ECG was reviewed by the Attending Physician. Demonstrates normal sinus rhythm at 60 bpm sp3 with normal intervals, slight leftward axis, normal QRS, nonspecific ST/T changes lead III without evidence of acute ischemia or LA. Vital Signs: 11/25 23:11 BP 140 / 98; Pulse 78; Resp 24; Temp 98.4; Pulse Ox 100% ; Weight 90.72 kg; Height 5 tw5 ft. 10 in. (177.80 cm); Pain 8/10; 11/26 00:00 BP 162 / 83; Pulse 74; Resp 20; Pulse Ox 100% on R/A; ll3 00:52 BP 125 / 74; Pulse 65; Resp 18; Pulse Ox 99% on R/A; ll3 11/25 23:11 Body Mass Index 28.70 (90.72 kg, 177.80 cm) tw5 MDM: 11/25 23:35 Patient medically screened. sp3 23:43 Data reviewed: vital signs, nurses notes, old medical records, lab test result(s), EKG, sp3 radiologic studies. ED course: 62-year-old male with a history of hypertension, diabetes, kidney stone with complex presentation of right upper quadrant pain, vertigo, emesis. Differential diagnosis is broad and includes cholecystitis, cholelithiasis, gastroenteritis, peptic ulcer disease, vertigo, viral syndrome, kidney stone, pyelonephritis, aortic pathology, sepsis, others. We will differentiate this with laboratory values, urinalysis, CT scan of the head, CT scan of the abdomen and pelvis with renal stone protocol, ultrasound right upper quadrant. Dilaudid and Zofran IV for symptomatic control. Disposition pending work-up and patient course.. 11/26 01:18 ED course: Patient's work-up demonstrates no gallbladder pathology/biliary pathology, sp3 kidney stone, intracranial hemorrhage or other abnormality and brain structure effectively we have ruled out kidney stone, biliary disease, central vertigo. Patient did respond to the meclizine and feels much better after that and the Phenergan. We will discharge him home on Phenergan and meclizine as needed as needed and patient to follow-up with his PCP.. 11/25 23:35 Order name: CBC with Diff; Complete Time: 01:11 sp3 11/25 23:35 Order name: CMP; Complete Time: 01:11 sp3 11/25 23:35 Order name: Lipase; Complete Time: 01:11 sp3 11/25 23:35 Order name: Troponin High Sensitivity; Complete Time: 01:11 sp3 11/26 00:23 Order name: Manual Differential; Complete Time: 01:11 EDMS 11/25 23:35 Order name: CT Abd/Pelvis - Without Contrast sp3 11/25 23:35 Order name: US Abdomen Limited sp3 11/25 23:35 Order name: CT Head Brain wo Cont sp3 11/25 23:35 Order name: IV Saline Lock; Complete Time: 23:50 sp3 11/25 23:35 Order name: Labs collected and sent; Complete Time: 23:50 sp3 11/25 23:35 Order name: EKG - Nurse/Tech; Complete Time: 00:44 sp3 Administered Medications: 11/25 23:50 Drug: Zofran (Ondansetron) 4 mg Route: IVP; Site: left forearm; ll3 11/26 00:30 Follow up: Response: No adverse reaction; No change in condition ll3 11/25 23:50 Drug: Dilaudid (HYDROmorphone) 1 mg Route: IVP; Site: left forearm; ll3 11/26 01:33 Follow up: Response: No adverse reaction; Marked relief of symptoms ll3 00:09 Drug: Zofran (Ondansetron) 4 mg Route: IVP; Site: left antecubital; ll3 01:33 Follow up: Response: No adverse reaction; No change in condition ll3 00:40 Drug: Phenergan (promethazine) 12.5 mg Route: IVP; Site: left antecubital; ll3 01:32 Follow up: Response: No adverse reaction; Marked relief of symptoms ll3 00:54 Drug: Meclizine 25 mg Route: PO; ll3 01:32 Follow up: Response: No adverse reaction; Marked relief of symptoms ll3 Disposition Summary: 11/26/22 01:19 Discharge Ordered Location: Home sp3 Condition: Stable sp3 Diagnosis - Other peripheral vertigo sp3 Followup: sp3 - With: Private Physician - When: Upon discharge from the Emergency Department - Reason: Continuance of care Discharge Instructions: - Discharge Summary Sheet sp3 - Vertigo sp3 Forms: - Medication Reconciliation Form sp3 - Thank You Letter sp3 - Antibiotic Education sp3 - Prescription Opioid Use sp3 - Work release form ll3 Prescriptions: - Meclizine 25 mg Oral Tablet - take 1 tablet by ORAL route every 8 hours As needed; 30 tablet; Refills: 0, sp3 Product Selection Permitted - promethazine 25 mg Oral Tablet - take 1 tablet by ORAL route every 6 hours As needed; 20 tablet; Refills: 0, sp3 Product Selection Permitted Signatures: Dispatcher [employer] EDNoe Aquino MD MD sp3 Sherrie Mahmood 5 Lien Bui RN RN ll3
--- NOTE | 2022-11-26 01:20 | ER ---
Nurse's Notes [facility] Name: Domenic Beltre Age: 62 yrs Sex: Male : 1960 Arrival Date: 11/25/2022 Time: 22:53 Bed 14 Private MD: Diagnosis: Other peripheral vertigo Presentation: 11/25 23:11 Chief complaint: Patient states: "I feel so so dizzy, nauseous and I have been tw5 vomiting. A side on my right side just came out of nowhere.". Coronavirus screen: Vaccine status: Patient reports receiving the 2nd dose of the covid vaccine. [employer] Ebola Screen: Patient negative for fever greater than or equal to 101.5 degrees Fahrenheit, and additional compatible Ebola Virus Disease symptoms Patient denies exposure to infectious person. Patient denies travel to an Ebola-affected area in the 21 days before illness onset. Initial Sepsis Screen: Does the patient meet any 2 criteria? No. Patient's initial sepsis screen is negative. Does the patient have a suspected source of infection? Yes: Acute abdominal pain. Risk Assessment: Do you want to hurt yourself or someone else? Patient reports no desire to harm self or others. Onset of symptoms was November 25, 2022 at 22:00. 23:11 Acuity: CORNELIUS 2 tw5 23:11 Method Of Arrival: Wheelchair tw5 Triage Assessment: 23:12 General: Appears ill, Behavior is appropriate for age, anxious. Pain: Complains of pain tw5 in anterior aspect of right lateral abdomen Pain currently is 8 out of 10 on a pain scale. GI: Pt is actively vomiting undigested food, Reports nausea, vomiting. Historical: - Allergies: 23:12 Aspirin; tw5 23:12 PENICILLINS; tw5 - Home Meds: 23:12 Synjardy 12.5-500 mg oral tab 1 tab 2 times per day [Active]; losartan 100 mg oral tab tw5 1 tab once daily [Active]; atorvastatin 80 mg oral tab 1 tab once daily [Active]; - PMHx: 23:12 Kidney stones; Hypertensive disorder; Diabetes mellitus; tw5 - PSHx: 23:12 Appendectomy; tw5 - Immunization history:: Flu vaccine is not up to date. - Social history:: Smoking status: Patient denies any tobacco usage or history of. Screenin/04 01:31 [facility] ED Fall Risk Assessment (Adult) History of falling in the last 3 months, ll3 including since admission No falls in past 3 months (0 pts) Confusion or Disorientation No (0 pts) Intoxicated or Sedated No (0 pts) Impaired Gait No (0 pts) Mobility Assist Device Used No (0 pt) Altered Elimination No (0 pt) Score/Fall Risk Level 0 - 2 = Low Risk Oriented to surroundings, Maintained a safe environment, Educated pt \\T\\ family on fall prevention, incl call for assistance when getting out of bed. Abuse screen: Denies threats or abuse. Denies injuries from another. Nutritional screening: No deficits noted. Tuberculosis screening: No symptoms or risk factors identified. Assessment: 11/25 23:00 General: Appears uncomfortable, Behavior is calm, cooperative. Pain: Complains of pain ll3 in anterior aspect of right lateral abdomen Pain does not radiate. Pain currently is 8 out of 10 on a pain scale. Pain began 1 day ago. Is continuous. Neuro: Level of Consciousness is awake, alert, obeys commands, Oriented to person, place, time, situation, Reports dizziness. GI: Abdomen is round non-distended, Pt is actively vomiting clear fluid, undigested food, Reports nausea, vomiting, since States started just LUGGER. Derm: Skin is pink, warm \\T\\ dry. 11/26 00:40 General: ERP notified, medicated as ordered. GI: Reports nausea. ll3 Vital Signs: 11/25 23:11 BP 140 / 98; Pulse 78; Resp 24; Temp 98.4; Pulse Ox 100% ; Weight 90.72 kg; Height 5 tw5 ft. 10 in. (177.80 cm); Pain 8/10; 11/26 00:00 BP 162 / 83; Pulse 74; Resp 20; Pulse Ox 100% on R/A; ll3 00:52 BP 125 / 74; Pulse 65; Resp 18; Pulse Ox 99% on R/A; ll3 11/25 23:11 Body Mass Index 28.70 (90.72 kg, 177.80 cm) tw5 ED Course: 11/25 22:53 Patient arrived in ED. ja2 23:11 Noe Gonzalez MD is Attending Physician. sp3 23:12 Triage completed. tw5 23:12 Arm band placed on Patient placed in an exam room. tw5 23:14 Patient has correct armband on for positive identification. Placed in gown. Bed in low tw5 position. Call light in reach. Side rails up X 1. Adult w/ patient. Client placed on continuous cardiac and pulse oximetry monitoring. NIBP monitoring applied. Door closed. Noise minimized. Moved to private room. Warm blanket given. Verbal reassurance given. 23:48 Missed attempt(s): 20 gauge in left antecubital area. 22 gauge in right antecubital ll3 area. 11/26 00:33 CT Abd/Pelvis - Without Contrast In Process Unspecified. EDMS 00:33 CT Head Brain wo Cont In Process Unspecified. EDMS 00:43 US Abdomen Limited In Process Unspecified. EDMS 01:32 No provider procedures requiring assistance completed. IV discontinued, intact, ll3 bleeding controlled, No redness/swelling at site. Pressure dressing applied. Administered Medications: 11/25 23:50 Drug: Zofran (Ondansetron) 4 mg Route: IVP; Site: left forearm; ll3 11/26 00:30 Follow up: Response: No adverse reaction; No change in condition ll3 11/25 23:50 Drug: Dilaudid (HYDROmorphone) 1 mg Route: IVP; Site: left forearm; ll3 11/26 01:33 Follow up: Response: No adverse reaction; Marked relief of symptoms ll3 00:09 Drug: Zofran (Ondansetron) 4 mg Route: IVP; Site: left antecubital; ll3 01:33 Follow up: Response: No adverse reaction; No change in condition ll3 00:40 Drug: Phenergan (promethazine) 12.5 mg Route: IVP; Site: left antecubital; ll3 01:32 Follow up: Response: No adverse reaction; Marked relief of symptoms ll3 00:54 Drug: Meclizine 25 mg Route: PO; ll3 01:32 Follow up: Response: No adverse reaction; Marked relief of symptoms ll3 Medication: 01:32 VIS not applicable for this client. ll3 Outcome: 01:19 Discharge ordered by . sp3 01:32 Discharged to home ambulatory, with family. ll3 01:32 Condition: stable 01:32 Discharge instructions given to patient, family, Instructed on discharge instructions, follow up and referral plans. medication usage, Demonstrated understanding of instructions, follow-up care, medications, Prescriptions given X 2. 01:33 Patient left the ED. ll3 Signatures: Dispatcher [employer] EDMS Noe Gonzalez MD MD sp3 Nicolasa Servin Tiffany 5 Lien Bui RN RN ll3
[2022-11-26 01:51] VITALS: TEMP 98.4
[2022-11-26 02:02] VITALS: BP 125/74; O2SAT 99
--- NOTE | 2022-11-26 14:05 | RAD REPORT ---
EXAM DESCRIPTION: CT - Head Brain Wo Cont - 11/26/2022 6:45 am CLINICAL HISTORY: 62 years, Male, Vertigo / Vomiting COMPARISON: 03/19/2018 FINDINGS: Multiple transaxial tomograms of the brain were obtained from the base of the skull to the vertex without contrast. 2-D multiplanar reformats and the coronal and sagittal plane were performed and reviewed. This exam was performed according to our departmental dose-optimization protocol, which includes auto mated exposure control, adjustment of the mA and/or kV according to patient size and/or use of iterat moose reconstruction technique. Brain parenchyma as well as the landaverde and white matter differentiation demonstrate to be unremarkable. There is no midline shift and/or mass effect. There is no evidence for acute hemorrhage. No focal ar eas of hypodensities. Lateral ventricles and cisterns displace normal appearance. No intra or ext ra axial fluid collections were seen. The calvarium is intact with no evidence for fracture. The visu alized portions of the paranasal sinuses suggests the right mucus retention cyst. The mastoid air heaven ls and orbits demonstrate to be clear. IMPRESSION: No acute intracranial hemorrhage identified. Right mucus retention cyst. Electronically signed by: Alonzo Barnhart MD 11/26/2022 12:48 AM [employer] Due to temporary technical issues with the PACS/Fluency reporting system, reports are being signed by the in house radiologists without review as a courtesy to insure prompt reporting. The interpreting radiologist is fully responsible for the content of the report.
--- NOTE | 2022-11-26 14:06 | RAD REPORT ---
EXAM DESCRIPTION: CT - Abdomen Pelvis Wo Contrast - 11/26/2022 6:45 am CLINICAL HISTORY: Flank pain / RUQ. COMPARISON: None. TECHNIQUE: Serial axial CT images were obtained from above the diaphragm through the pubic symphysis without administration of intravenous or oral contrast. All CT scans are performed using dose optimization techniques as appropriate, including automated exp osure control and/or standardized protocols, where dose is adjusted for indication for exam and body habitus. FINDINGS: Thoracic: No significant abnormality. Hepatobiliary: No obvious concerning hepatic lesion identified in the absence of intravenous contrast . The gallbladder is unremarkable. No biliary ductal dilatation. Pancreas: Unremarkable. Spleen: Unremarkable. Gastrointestinal: No evidence of bowel obstruction or perienteric inflammation. The appendix is nonvi sualized, but there are no pericecal inflammatory changes. A small to moderate amount of fecal materi al in the colon. Adrenals: No abnormality identified in either adrenal gland. Renal: No obvious parenchymal abnormality in either kidney in the absence of intravenous contrast. Fe w punctate bilateral renal calculi. No hydronephrosis or ureteral calculi. Bladder/Reproductive: Unremarkable appearance of the urinary bladder by CT technique. Mild prostatome jacob. Vascular/Lymphatics: No lymphadenopathy identified by CT size criteria. Abdominal aorta is normal in caliber. Musculoskeletal: No concerning osseous lesion identified. Chronic bilateral pars interarticularis def ects at L5 with no spondylolisthesis at L5-S1. Fluid / peritoneum: No significant free fluid. No free intraperitoneal air identified. IMPRESSION: 1. No acute abnormality identified in the abdomen or pelvis by CT. 2. Few punctate nonobstructive bilateral renal calculi. 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 The interpreting radiologist is fully responsible for the content of the report.
--- NOTE | 2022-11-26 14:08 | RAD REPORT ---
EXAM DESCRIPTION: US - Abdomen Exam Limited - 11/26/2022 12:42 am CLINICAL HISTORY: ABD PAIN. COMPARISON: CT of the abdomen and pelvis from today. TECHNIQUE: Ultrasound of the gallbladder with Doppler flow imaging was obtained. FINDINGS: Gallbladder: No cholelithiasis or gallbladder wall thickening. Negative sonographic Heller 's sign. Bile ducts: No dilatation of the intrahepatic bile ducts. The common bile duct measures 0.3 cm in eloisa meter at the marj hepatis. Incidentally noted increased hepatic echogenicity with focal fatty sparing adjacent to the gallbladde r. IMPRESSION: 1. No cholelithiasis or acute findings. 2. Incidentally noted hepatic steatosis. 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 The interpreting radiologist is fully responsible for the content of the report.
--- NOTE | 2022-11-26 16:02 | EKG ---
Test Date: 2022-11-26 Test Time: 00:42:10 Flight Follower: HAKAN MEASUREMENT RESULTS: Intervals: Rate: 57 NC: 172 QRSD: 110 QT: 450 QTc: 438 [place]: P: 43 NC: 172 QRS: -25 T: 17 INTERPRETIVE STATEMENTS: Sinus bradycardia Otherwise normal ECG Compared to ECG 05/02/2019 12:42:03 Sinus rhythm no longer present Electronically Signed On 11-26-22 16:01:09 [employer] PL[employer] ASSEMBLER by Jose Mckay
== END 2022-11-26 01:33 | disposition home or self-care (01) ==
LOC: ER 22:47
DX: H81.399 Other peripheral vertigo, unspecified ear (principal); E11.9 Type 2 diabetes mellitus without complications; I10 Essential (primary) hypertension; Z88.0 Allergy status to penicillin; Z88.6 Allergy status to analgesic agent
CPT/HCPCS: 93005; 85025; 36415; 84484; 83690; 80053; 70450; 74176; 76705; 99283; J2550; J8597; J1170; J2405 ×2